=== PATIENT | female | born 1960 | race Caucasian/White ===

== ENCOUNTER 2025-01-05 16:18 | Inpatient (IN) | payer OTHER, SELFPAY ==
[2025-01-05 16:58] VITALS: BP 184/103; BP 184/118; PULSE 106; RESP 20; TEMP 37.2; O2SAT 90; BMI 32.3
[2025-01-05 17:00] VITALS: O2SAT 93
--- NOTE | 2025-01-05 17:02 | EKG_ITS ---
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: : 1960 Requested By: Khoi Boyd Order Number: [id number] Reading MD: Khoi Boyd Measurements Intervals [place] Rate: 107 P: 65 GA: 178 QRS: 59 QRSD: 99 T: 90 QT: 345 QTc: 461 Interpretive Statements SINUS TACHYCARDIA WITH OCCASIONAL SUPRAVENTRICULAR PREMATURE COMPLEXES VOLTAGE CRITERIA FOR LVH [MEETS CRITERIA IN ONE OF: R(aVL), S(V1), R(V5), R(V5/V6)+S(V1)] MODERATE ST DEPRESSION [0.05+ mV ST DEPRESSION] Compared to ECG 05/21/2024 10:09:51 Left ventricular hypertrophy now present ST (T wave) deviation now present Sinus rhythm no longer present Prolonged QT interval no longer present /store/S0/[id number].pdf
--- NOTE | 2025-01-05 17:02 | XR_ITS ---
Examination: PA lateral chest 2 views Technique: Upright PA lateral chest 2 views Exam date and time: January 05, 2025 1719 hrs. Comparison May 20, 2024 Indications: Shortness of breath fever today. Findings: Extensive diffuse right lung pneumonia Significant left base pneumonia Mild enlargement cardiac contour prominent vascular congestion Impression: Extensive diffuse right lung pneumonia Significant left base pneumonia Mild associated heart failure
--- NOTE | 2025-01-05 17:03 | EDRME_ITS ---
Rapid Medical Screening Exam [facility] Arrival date/time: 01/05/25 16:18 64-year-old female with a history of CHF, hypertension presents to the emergency room with a chief complaint of shortness of breath, fever x 1 day. Patient states she was having multiple episodes of vomiting yesterday and believes she aspirated. This morning she woke up with fevers and shortness of breath. I have greeted and performed a focused initial assessment of this patient. A comprehensive ED assessment and evaluation of the patient, analysis of all test results, and completion of the medical decision making process will be conducted by additional ED providers. Chief Complaint: Shortness of Breath/Dyspnea Vital signs: Vital Signs Temperature 99 F 01/05/25 16:58 Pulse Rate 106 H 01/05/25 16:58 Respiratory Rate 20 01/05/25 16:58 Blood Pressure 184/103 H 01/05/25 16:58 Pulse Oximetry (%) 90 L 01/05/25 16:58 Oxygen Delivery Method Room Air 01/05/25 16:58 Vital signs reviewed by provider: Yes
[2025-01-05 17:08] VITALS: BP 184/103; PULSE 106
[2025-01-05] MEDS: cloNIDine HCL 0.1 MG TABLET PO (17:08)
[2025-01-05 17:36] LABS: Basophils % (Auto) 0 % (0-2.5); Eosinophils % (Auto) 0 % (0-10); Hematocrit 45.5 % (36.0-46.0); Immature Granulocytes % (Auto) 0 % (0-0); Immature Granulocytes Auto 0.07 Thou/mm3 (0.00-0.00); Lymphocytes # (Auto) 0.9 Thou/mm3 (1.0-4.8); Lymphocytes % (Auto) 5 % (10-50); Mean Corpuscular Hemoglobin 29.5 pg (25.0-35.0); Mean Corpuscular Volume 89 fL (80-100); Monocytes # (Auto) 0.9 Thou/mm3 (0.0-0.8); Monocytes % (Auto) 5 % (0-12); Neutrophils # (Auto) 15.1 Thou/mm3 (1.8-7.7); Neutrophils % (Auto) 89 % (37-80); Nucleated Red Blood Cell % 0 /100 WBC (0); Platelet Count 295 Thou/mm3 (140-440); RDW Standard Deviation 44.5 fL (36.4-46.3); Red Blood Count 5.09 Miln/mm3 (4.00-5.20)
[2025-01-05] MEDS: METOCLOPRAMIDE 5 MG TABLET 10 MG PO (17:50)
[2025-01-05 18:08] LABS: Alanine Aminotransferase 14 U/L (10-49); Albumin, Serum 4.5 gm/dL (3.4-4.8); Albumin/Globulin Ratio 1.8 (1.2-2.2); Alkaline Phosphatase 107 U/L (46-116); Anion Gap 10 (7-16); Aspartate Amino Transferase 21 U/L (0-34); B-Type Natriuretic Peptide 696 pg/mL (0-100); BUN/Creatinine Ratio 22 Ratio (12-20); Bilirubin,Total 0.5 mg/dL (0.3-1.2); Blood Urea Nitrogen 26 mg/dL (9-23); Calcium 9.9 mg/dL (8.3-10.6); Calcium (Corrected) 9.9 mg/dL (8.5-10.1); Chloride 102 mMol/L (98-107); Creatinine (Component) 1.2 mg/dL (0.6-1.3); Estimated Creatinine Clearance 64.9 mL/min (>60); Globulin 2.5 gm/dL (2.3-3.5); Glucose 140 mg/dL (74-106); LDH (Lactate Dehydrogenase) 247 U/L (120-246); Magnesium 1.9 mg/dL (1.6-2.6); Osmolality,Calculated 274 (275-295); Potassium 4.6 mMol/L (3.4-5.1); Sodium 134 mMol/L (136-145); eGFR 51 See Note
[2025-01-05 18:16] LABS: Troponin I 0.913 ng/mL (0.0-0.045)
[2025-01-05 19:46] VITALS: BP 129/79; PULSE 93; RESP 16; O2SAT 97
[2025-01-05 21:00] VITALS: BP 125/69; PULSE 96; RESP 24; TEMP 36.8; O2SAT 96
[2025-01-05] MEDS: MORPHINE SULF INJ 10 MG/ML VIAL 5 MG IVP (21:22)
[2025-01-05] MEDS: ONDANSETRON INJ 2 MG/ML INJ 2 ML 4 MG IV (21:22)
--- NOTE | 2025-01-05 21:38 | PD.EDSOB ---
ED SOB =RME/HPI General Chief Complaint: Shortness of Breath/Dyspnea Stated Complaint: CAN'T BREATH W/ UPPER CHEST CONGESTION/PAIN Time Seen by Provider: 01/05/25 20:05 Source: patient Arrival date/time: 01/05/25 16:18 Mode of arrival: ambulatory Limitations: no limitations RME / HPI RME / HPI Narrative: 01/05/25 16:18 64-year-old female with a history of CHF, hypertension presents to the emergency room with a chief complaint of shortness of breath, fever x 1 day. Patient states she was having multiple episodes of vomiting yesterday and believes she aspirated. This morning she woke up with fevers and shortness of breath. I have greeted and performed a focused initial assessment of this patient. A comprehensive ED assessment and evaluation of the patient, analysis of all test results, and completion of the medical decision making process will be conducted by additional ED providers. DR RODRIGUEZ MAIN ED EVALUATION: 64-year-old female with a history of hypothyroidism, high blood pressure, and gastric bypass came to the ER because of shortness of breath and chest pain after vomiting. She is currently taking Wegovy for weight loss, which often causes vomiting after injections. She was in her usual state of health yesterday, but after several episodes of vomiting, she thinks she may have inhaled some of it (aspirated). Soon after, she developed a cough, shortness of breath, and a mild fever of 99?F, which led her to seek medical attention. Since then, she has been coughing but unable to bring anything up. She also feels wheezy and has chest pain on both sides, which was worse with deep breaths but has since improved. She denies having headaches, falls, injuries, loss of consciousness, chills, night sweats, heart palpitations, stomach pain, nausea, diarrhea, constipation, or urinary issues. Related Data Home Medications ?Medication ?Instructions ?Recorded ?Confirmed fluoxetine 40 mg capsule 40 mg PO QDAY 09/29/23 01/05/25 hydrocodone 10 mg-acetaminophen 1 tab PO Q8H PRN Pain 09/29/23 01/05/25 325 mg tablet levothyroxine 137 mcg tablet 137 mcg PO QDAY 11/17/23 02/23/25 ondansetron 8 mg disintegrating 8 mg PO Q8H PRN Nausea And Vomiting 09/29/23 01/05/25 tablet ropinirole 3 mg tablet 3 mg PO QDAY 09/29/23 01/05/25 semaglutide (weight loss) 2.4 2.4 mg subcut QWEEK 09/29/23 01/05/25 mg/0.75 mL subcutaneous pen injector lisinopril 5 mg tablet 5 mg PO QDAY 01/05/25 01/05/25 Previous Rx's ?Medication ?Instructions ?Recorded amlodipine 5 mg tablet 5 mg PO QDAY #30 tabs 05/22/24 aspirin 81 mg capsule 81 mg PO QDAY #30 caps 05/22/24 Allergies Allergy/AdvReac Type Severity Reaction Status Date / Time naproxen (From Naprosyn) Allergy Verified 09/29/23 13:31 Review of Systems Review of Systems Systems Reviewed: All systems reviewed, normal except as documented Past Medical History Past Medical History NEUROLOGIC: Negative Seizures CARDIAC: Positive Hypertension; Negative Congestive Heart Failure RESPIRATORY: Negative Chronic Obstructive Pulmonary Disease (COPD) GASTROINTESTINAL: Positive Obesity GENITOURINARY: Negative Renal Disease ENDOCRINE: Positive Hypothyroidism; Negative Diabetes Mellitus Type 1 or Diabetes Mellitus Type 2 PSYCHO/SOCIAL: Positive Depression OTHER HISTORY: Negative Blood Transfusions, Blood Transfusion Reaction or Anesthesia Reactions Family History FAMILY HISTORY: Positive Family Respiratory Disorders (Sangeetha had Asthma) Surgical History SURGICAL: Positive Knee Sx (Right knee replacement) Social History SMOKING STATUS: Never smoker SUBSTANCE USE: does not use ED Exam Narrative Physical exam: GENERAL APPEARANCE: alert and oriented x 4, well-developed, well-nourished, no acute distress VITALS: All vitals were reviewed and the pulse ox is 96% on 2 L/min via nasal cannula, which is normal according to my interpretation. HEENT: Normocephalic, atraumatic; pupils equal, round, reactive to light; EOMI; mucous membranes pink, moist; oropharynx clear NECK: Supple LUNGS: CTABL; no wheezes, no rales, no rhonchi HEART: Regular rate, regular rhythm; normal S1, S2; no murmurs ABDOMEN: non distended; normal BS; soft, no tenderness, no guarding, no rebound; no masses, no organomegaly, no hernia BACK: no CVA tenderness EXTREMITIES: atraumatic; no edema NEUROLOGIC: awake; alert and oriented x4; cranial nerves II-XII grossly intact; no focal sensory or motor deficits PSYCHIATRIC: appropriate mood and affect SKIN: warm, dry, normal color; no rashes General Limitations: Present no limitations Course Course Course Narrative: CXR is ordered for determining etiology of shortness of breath. Quality Measures none Orders Category Date Time Status EKG (ED ONLY) *Do not use* NOW Care 01/05/25 17:02 Completed EKG (ED Only) Stat Exams 01/05/25 17:02 Draft XR chest 2V Stat Exams 01/05/25 17:02 Completed B-Type Natriuretic Peptide Stat Lab 01/05/25 17:29 Completed Blood Culture (Lab) Stat Lab 01/05/25 23:02 Received CBC Stat Lab 01/05/25 17:29 Completed Comprehensive Metabolic Panel Stat Lab 01/05/25 17:29 Completed LDH (Lactate Dehydrogenase) Stat Lab 01/05/25 17:29 Completed Lactate (Lactic Acid) Stat Lab 01/05/25 22:57 Completed Magnesium Stat Lab 01/05/25 17:29 Completed Procalcitonin Stat Lab 01/05/25 22:57 Completed Troponin I Stat Lab 01/05/25 17:29 Completed Troponin I Stat Lab 01/05/25 22:57 Completed Urinalysis Stat Lab 01/06/25 01:11 Completed Urine Culture Stat Lab 01/06/25 01:11 Received Azithromycin Inj [Zithromax Inj] 500 mg Med 01/05/25 22:27 Discontinued Sodium Chloride 0.9% 250 ml [Ns] 250 ml IV X1 Metoclopramide [Reglan] Med 01/05/25 17:32 Discontinued 10 mg PO X1 ONE Morphine Inj Med 01/05/25 20:49 Discontinued 5 mg IVP X1 ONE Ondansetron Inj [Zofran Inj] Med 01/05/25 20:49 Discontinued 4 mg IV X1 ONE PROMETHAZINE w/COD SYRUP [Phenergan w/Cod Syrup ( Med 01/05/25 23:06 Discontinued Pediatric)] 10 ml PO X1 ONE cefTRIAXone [Rocephin] 1,000 mg Med 01/05/25 22:27 Discontinued SODIUM CHLORIDE 0.9% (Popper) [NS 0.9% (Popper)] 50 ml IV X1 cloNIDine HCL [Catapres] Med 01/05/25 17:04 Discontinued 0.1 mg PO X1 ONE Vital Signs Vital signs: Vital Signs Temperature 99 F 01/05/25 16:58 Pulse Rate 106 H 01/05/25 16:58 Respiratory Rate 20 01/05/25 16:58 Blood Pressure 184/103 H 01/05/25 16:58 Pulse Oximetry (%) 90 L 01/05/25 16:58 Oxygen Delivery Method Room Air 01/05/25 16:58 Shortness of Breath / Dyspnea MDM Narrative MDM Narrative:: Scribe Attestation: Vonda Hsieh am scribing for and in the presence of Dr. Rodriguez. Provider Notation: Although this document has been carefully reviewed, there may still be some phonetic and other typographical errors. These errors are purely grammatical due to imperfections in the software program and should not be construed in any way to compromise the substance of the patient's medical care during this visit. Patient data External records reviewed:: [facility] previous records Clinical information provided by:: patient Social determinants that could affect healthcare access:: none Patient has the following chronic illnesses:: see PMH How is presenting disease/condition affected by chronic disease/condition?: uneffected by Evaluation data The following diagnostics were reviewed and interpreted by me:: lab results, radiology exam(s) and EKG tracing(s) Lab and/or radiology exams considered but not ordered:: na Interpretation Summary: I personally reviewed the radiology data and agree with the radiologist's interpretation. Examination: PA lateral chest 2 views Technique: Upright PA lateral chest 2 views Exam date and time: January 05, 2025 1719 hrs. Comparison May 20, 2024 Indications: Shortness of breath fever today. Findings: Extensive diffuse right lung pneumonia Significant left base pneumonia Mild enlargement cardiac contour prominent vascular congestion Impression: Extensive diffuse right lung pneumonia Significant left base pneumonia Mild associated heart failure Dictated By: Morteza Marie MD Medications / Prescriptions Medications or Prescriptions considered but not ordered:: na Medication administrations:: Medication Administration History Acetaminophen (Acetaminophen 325 Mg Tablet) 650 mg PO Q6H PRN PRN Reason: PAIN SCALE 1-3 (mild Stop: 02/05/25 00:15 Acetaminophen (Acetaminophen 325 Mg Tablet) 650 mg PO Q6H PRN PRN Reason: Fever >100.4 Stop: 02/05/25 00:15 Hydrocodone Bitart/Acetaminophen (Hydrocodone/Apap 10/325 Tab) 1 tab PO Q8H PRN PRN Reason: PAIN SCALE 7-10 (Severe Stop: 01/11/25 00:15 Last Admin: 01/06/25 02:31 Dose: 1 tab Documented By: MARTINE Albuterol/Ipratropium (Albuterol/Ipratropium (Duoneb) Rt Kaye 3 Ml Nebu) 3 ml INH Q6HRRT JOYCELYN Stop: 02/05/25 00:59 Last Admin: 01/06/25 01:21 Dose: 3 ml Documented By: ANGELY Enoxaparin Sodium (Enoxaparin Sod Inj 40 Mg/0.4 Ml Syringe) 40 mg SC QDAY [facility] Stop: 01/20/25 08:59 Ceftriaxone Sodium 1,000 mg/ (Sodium Chloride) 50 mls @ 100 mls/hr IV [facility] Stop: 01/13/25 20:59 Azithromycin 250 mg/ Sodium (Chloride) 250 mls @ 250 mls/hr IV [facility] Stop: 01/13/25 20:59 Metronidazole (Flagyl 500 Mg Iv) 500 mg in 100 mls @ 200 mls/hr IV Q8HR JOYCELYN Stop: 01/13/25 00:16 Last Infusion: 01/06/25 01:42 Dose: Infused Documented By: Admin: 01/06/25 01:11 Dose: 200 mls/hr Documented By: BECKY Sodium Chloride (Ns) 1,000 mls @ 125 mls/hr IV .Q8H ONE Stop: 01/06/25 08:43 Last Admin: 01/06/25 02:31 Dose: 125 mls/hr Documented By: MARTINE Levothyroxine Sodium (Levothyroxine Sodium 112 Mcg Tablet) 112 mcg PO ACBR [facility] Stop: 02/05/25 05:59 Last Admin: 01/06/25 05:57 Dose: 112 mcg Documented By: MARTINE Levothyroxine Sodium (Levothyroxine Sodium 25 Mcg Tablet) 25 mcg PO ACBR [facility] Stop: 02/05/25 05:59 Last Admin: 01/06/25 05:58 Dose: 25 mcg Documented By: MARTINE Lisinopril (Lisinopril 2.5 Mg Tablet) 5 mg PO QDAY [facility] Stop: 02/05/25 08:59 Ondansetron HCl (Ondansetron Inj 2 Mg/Ml Inj 2 Ml) 4 mg IV Q6H PRN; Protocol PRN Reason: NAUSEA OR VOMITING Stop: 02/05/25 00:15 Pantoprazole Sodium (Pantoprazole Inj 40 Mg Vial) 40 mg IVP QDAY JOYCELYN Stop: 02/05/25 08:59 Discontinued Medications Hydrocodone Bitart/Acetaminophen (Hydrocodone/Apap 10/325 Tab) 1 tab PO Q4HR PRN PRN Reason: PAIN SCALE 7-10 (Severe Stop: 01/11/25 00:15 Clonidine (Clonidine Hcl 0.1 Mg Tablet) 0.1 mg PO X1 ONE Stop: 01/05/25 17:05 Last Admin: 01/05/25 17:08 Dose: 0.1 mg Documented By: IRVIN Azithromycin 500 mg/ Sodium (Chloride) 250 mls @ 250 mls/hr IV X1 ONE Stop: 01/05/25 23:26 Last Infusion: 01/06/25 00:21 Dose: Infused Documented By: Admin: 01/05/25 23:21 Dose: 250 mls/hr Documented By: BECKY Ceftriaxone Sodium 1,000 mg/ (Sodium Chloride) 50 mls @ 100 mls/hr IV X1 ONE Stop: 01/05/25 22:56 Last Infusion: 01/05/25 23:52 Dose: Infused Documented By: Admin: 01/05/25 23:22 Dose: 100 mls/hr Documented By: BECKY Sodium Chloride (Ns) 500 mls @ 999 mls/hr IV .Q31M ONE Stop: 01/06/25 01:13 Last Admin: 01/06/25 01:11 Dose: 999 mls/hr Documented By: BECKY Metoclopramide HCl (Metoclopramide 5 Mg Tablet) 10 mg PO X1 ONE Stop: 01/05/25 17:33 Last Admin: 01/05/25 17:50 Dose: 10 mg Documented By: IRVIN Morphine Sulfate (Morphine Sulf Inj 10 Mg/Ml Vial) 5 mg IVP X1 ONE Stop: 01/05/25 20:50 Last Admin: 01/05/25 21:22 Dose: 5 mg Documented By: BECKY Ondansetron HCl (Ondansetron Inj 2 Mg/Ml Inj 2 Ml) 4 mg IV X1 ONE Stop: 01/05/25 20:50 Last Admin: 01/05/25 21:22 Dose: 4 mg Documented By: BECKY Oxycodone/Acetaminophen (Oxycodone/Apap 5/325 Tablet) 1 tab PO Q6H PRN PRN Reason: PAIN SCALE 4-6 (Moderate Stop: 01/11/25 00:15 Promethazine HCl/Codeine (Promethazine W/Cod Syrup 1 Ml) 10 ml PO X1 ONE Stop: 01/05/25 23:07 Last Admin: 01/05/25 23:42 Dose: Not Given Documented By: BECKY Non-Admin Reason: Medication Not Available Promethazine HCl/Dextromethorphan (Promethazine/Dm Syrup 5 Ml Dose) 5 ml PO X1 ONE; Protocol Stop: 01/06/25 01:10 Last Admin: 01/06/25 01:24 Dose: 5 ml Documented By: BECKY Sodium Chloride (Sodium Chloride Rt 10% 15 Ml Nebu) 5 ml INH X1 ONE Stop: 01/06/25 00:17 Last Admin: 01/06/25 01:21 Dose: 5 ml Documented By: ANGELY as above Consultations Consultation(s) initiated? (list below): Yes Consultation #1 (Physician, Specialty, Details): Hospitalist made aware of the patient?s HPI, PMHx, lab and/or radiology results. Treatment plan was discussed. Accepts patient for admission. Diagnosis Shortness of Breath Differential Diagnosis: acute exacerbation of chronic obstructive airways disease, community acquired pneumonia and asthma with exacerbation Most likely diagnosis given after review of the tests above:: Pneumonis Admission Indicated Admission indicated?: indicated Admission Request Was there a request for admission?: Yes Admission Attestation Admission request attestation: Discussed case with [] from Hospitalist service regarding admission. Discussed patients ED course, exam findings, labs, and radiology results. The Hospitalist [agrees,declines] to accept the patient for admission. Disposition Plan Disposition Plan: Admit Discharge Plan Plan Patient Disposition: Admit Acute Care w/in Hospital Problem List Clinical Impression: Pneumonia
[2025-01-05 23:12] LABS: Lactate (Lactic Acid) 0.8 mMol/L (0.4-2.0)
[2025-01-05] MEDS: AZITHROMYCIN INJ 500 MG in SODIUM CHLORIDE 0.9% 250 ML 250 ML 250 MG IV (23:21)
[2025-01-05] MEDS: cefTRIAXone 1,000 MG in SODIUM CHLORIDE 0.9% (Popper) 50 ML 100 MG IV (23:22)
[2025-01-05 23:46] LABS: Procalcitonin 0.06 ng/ml (0.0-0.49)
[2025-01-05 23:49] LABS: Troponin I 1.354 ng/mL (0.0-0.045)
[2025-01-06] VITALS (10 sets, daily range): BP systolic 88–128; BP diastolic 47–73; PULSE 80–100; RESP 16–21; TEMP 36.3–36.7; O2SAT 91–99; BMI 32.1
--- NOTE | 2025-01-06 00:07 | PC.NURSE ---
Admitting provider at the bedside.
--- NOTE | 2025-01-06 00:21 | PD.RESHP ---
Documentation for date of: 01/06/25 [facility] History of Present Illness History of present illness: This is a 64-year-old female PMHx of hypothyroidism, HTN, and gastric bypass, presenting with shortness of breath and chest pain after vomiting. She is on WEGOVY for weight loss, and often has episodes of vomiting following the injection. She was at her normal state of health yesterday, however, she had several episode of vomiting and believe she had aspirated. This was followed by cough, shortness of breath, and a fever of 99 later that day, after which she decided to come to the ED. She has been coughing since, but unable to bring anything up. She states she feels wheezy and continued. Concurrently, she had chest pain bilaterally, worse with inspiration, nonradiating, which appears to have improved since the incident. Denies headaches, fall, trauma, LOC, chills or night sweats, palpitations, abdominal pain, nausea, diarrhea or constipation, dysuria, urinary frequency or urgency. ED COURSE: Tmax 99, HR 106, BP 184/103, RR 20, satting 7 on room air which improved with 2 L NC. WBC 17.0, remainder CBC WNL. Sodium 134, GLUCOSE 140. Normal Pro-Calc and lactic acid. BNP 696, troponin 0.913 > 1.354. EKG sinus tachycardia without acute ST changes. CXR showed extensive diffuse right lung pneumonia, significant left posterior medial, mild CHF. She was admitted for sepsis pneumonia and elevated troponins. PMHx: Hypothyroidism, HTN, obesity. PSHx: Tonsillectomy, gastric bypass, partial thyroidectomy, right knee replacement. MEDS: WEGOVY 2.4 mg weekly, LISINOPRIL 5 mg, NORCO q.8h., LEVOTHYROXINE 137 mcg. 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 Denies alcohol, tobacco, or drug use. Exam Vital Signs Temp Pulse Resp BP Pulse Ox O2 Del Method O2 Flow Rate 98.1 F 92 16 110/68 95 Nasal Cannula 3 01/06/25 00:00 01/06/25 00:00 01/06/25 00:00 01/06/25 00:00 01/06/25 00:00 01/06/25 00:00 01/06/25 00:00 Narrative Exam GENERAL Normal-appearing adult female, no apparent distress, on 3 L NC. HEENT NCAT.?[place]. Oral mucosa is moist. Patent Nares NECK Supple, nontender, no thyromegaly, no meningismus, no JVD, no step offs CHEST RRR, no m/g/r CTAB, no w/r/r. Symmetrical chest rise. No intercostal subcostal retraction Atraumatic, nontender, no crepitus, symmetrical expansion. ABDOMEN Soft, flat, nontender. No guarding/rebound tenderness/masses. Bowel sounds presents EXTREMITIES Nontender, no cyanosis, no edema No edema/cyanosis.? SKIN Warm and dry, no jaundice/rashes. NEUROMUSCULAR No lumbar or midline, no CVA, no paraspinal muscle spasm or tenderness. Moves all 4 extremities well, with full ROM and good CSM. WEBB x4, CN II-XII grossly intact. No focal neurologic deficits. PSYCHIATRY Normal mood and affect, cooperative, no SI or HI or hallucinations. Results: Labs 01/05/25 17:29 01/05/25 17:29 Labs: Short CBC 01/05/25 Range/Units 17:29 WBC 17.0 H (3.6-11.0) Thou/mm3 Hgb 15.0 (12.0-16.0) g/dL Hct 45.5 (36.0-46.0) % Plt Count 295 (140-440) Thou/mm3 BMP 01/05/25 17:29 Sodium 134 L Potassium 4.6 Chloride 102 Carbon Dioxide 22.0 BUN 26 H Creatinine 1.2 Glucose 140 H Calcium 9.9 Cardiac Enzymes 01/05/25 01/05/25 Range/Units 17:29 22:57 Troponin I 0.913 H* 1.354 H* D (0.0-0.045) ng/mL Liver Function 01/05/25 Range/Units 17:29 Total Bilirubin 0.5 (0.3-1.2) mg/dL AST 21 (0-34) U/L ALT 14 (10-49) U/L Alkaline Phosphatase 107 (46-116) U/L Albumin 4.5 (3.4-4.8) gm/dL Quality Measures Quality Measures none Medications Home Medications and Allergies Home Medications ?Medication ?Instructions ?Recorded ?Confirmed ?Type fluoxetine 40 mg capsule 40 mg PO QDAY 09/29/23 01/05/25 History hydrocodone 10 mg-acetaminophen 1 tab PO Q8H PRN Pain 09/29/23 01/05/25 History 325 mg tablet levothyroxine 137 mcg tablet 137 mcg PO QDAY 09/29/23 01/05/25 History ondansetron 8 mg disintegrating 8 mg PO Q8H PRN Nausea And Vomiting 09/29/23 01/05/25 History tablet ropinirole 3 mg tablet 3 mg PO QDAY 09/29/23 01/05/25 History semaglutide (weight loss) 2.4 2.4 mg subcut QWEEK 09/29/23 01/05/25 History mg/0.75 mL subcutaneous pen injector lisinopril 5 mg tablet 5 mg PO QDAY 01/05/25 01/05/25 History Allergies Allergy/AdvReac Type Severity Reaction Status Date / Time naproxen (From Naprosyn) Allergy Verified 09/29/23 13:31 Visit Medications Discontinued Medications Clonidine (Clonidine Hcl 0.1 Mg Tablet) 0.1 mg PO X1 ONE Stop: 01/05/25 17:05 Last Admin: 01/05/25 17:08 Dose: 0.1 mg Azithromycin 500 mg/ Sodium (Chloride) 250 mls @ 250 mls/hr IV X1 ONE Stop: 01/05/25 23:26 Last Admin: 01/05/25 23:21 Dose: 250 mls/hr Ceftriaxone Sodium 1,000 mg/ (Sodium Chloride) 50 mls @ 100 mls/hr IV X1 ONE Stop: 01/05/25 22:56 Last Infusion: 01/05/25 23:52 Dose: Infused Metoclopramide HCl (Metoclopramide 5 Mg Tablet) 10 mg PO X1 ONE Stop: 01/05/25 17:33 Last Admin: 01/05/25 17:50 Dose: 10 mg Morphine Sulfate (Morphine Sulf Inj 10 Mg/Ml Vial) 5 mg IVP X1 ONE Stop: 01/05/25 20:50 Last Admin: 01/05/25 21:22 Dose: 5 mg Ondansetron HCl (Ondansetron Inj 2 Mg/Ml Inj 2 Ml) 4 mg IV X1 ONE Stop: 01/05/25 20:50 Last Admin: 01/05/25 21:22 Dose: 4 mg Promethazine HCl/Codeine (Promethazine W/Cod Syrup 1 Ml) 10 ml PO X1 ONE Stop: 01/05/25 23:07 Last Admin: 01/05/25 23:42 Dose: Not Given Assessment & Plan Plan In summary: 64-year-old female PMHx of hypothyroidism, HTN, and gastric bypass, presenting with shortness of breath and chest pain after vomiting. Admitted for sepsis pneumonia and elevated troponin. Concern for sepsis Aspiration pneumonia Presenting with SOB, fever, and pleuritic chest pain after severe vomiting 2/2 WEGOVY. Believes she had aspirated during vomiting. Desatted to 87% on admission, improved to mid 90s on 3 L NC. Met 4/4 SIRS with T99, HR 106, RR 20, WBC 17.0, with pneumonia source and EOD i.e. troponinemia. CXR showed extensive diffuse right lung pneumonia, significant left posterior medial, mild CHF. Does not appear volume depleted, has elevated BNP, will give 2 L fluids in total only. Will treat for CAP, aspiration and HCAP. Low concerns for Pseudomonas. ? Admit to telemetry ? Started 500 mL NS bolus. ? Started 1 L NS maintenance at 125 cc/H ? Continue AZITHROMYCIN, CEFTRIAXONE, FLAGYL ? Continue DuoNebs ? Pending blood/sputum/urine cultures NSTEMI, likely type II Elevated BNP Had pleuritic chest pain bilaterally, nonradiating, nonexertional. Admission BNP 696, troponin 0.913 > 1.354. EKG sinus tachycardia without acute ST changes. Last echo 05/2024 showed EF 60?65, normal LV/RV size and function. Most likely NSTEMI or demand ischemia. No signs of volume overload, clear lung sounds, no lower extremity edema. Denies active chest pain currently. ? Trending troponin ? Pending repeat EKG ? Consider repeat echo Hypothyroidism Partial thyroidectomy Follows up regularly with PCP regarding thyroid function. ? Continue home LEVOTHYROXINE 137 mcg Chronic right knee pain S/p right knee replacement with chronic knee pain for which she is on NORCO. ? Continue home NORCO 10?325 q.8h. Elevated GLUCOSE GLUCOSE 140 on admission, likely reactive. A1c 5.1 from 05/2024. She is on WEGOVY for weight loss, denies history of diabetes. ? Daily GLUCOSE Asymptomatic pyuria UA showed WBC 12, positive leukocyte esterase. Denies urinary symptoms. ? Pending urine culture Health maintenance Diet: Cardiac GI prophylaxis: PROTONIX DVT prophylaxis: LOVENOX Antibiotics: CEFTRIAXONE, AZITHROMYCIN, FLAGYL CODE STATUS: Full code Disposition: Treating pneumonia, trending troponin. Patient case was discussed with attending, Carol Brush MD. Loree Richard DO PGYI Attending Provider Attestation/Addendum I attest that I was physically present for the evaluation, physical examination, lab and imaging review of the patient with the residents. I discussed the case with the residents and agree with the findings and plans of care as documented above. Patient is a 64 years old female with past medical history of hypothyroidism, hypertension, status post gastric bypass surgery who presented to the ED with complaint of shortness of breath and chest pain. Patient has been on Wegovy for weight loss, with which she has had multiple episodes of vomiting. Yesterday, patient had episodes of vomiting following which she had episode of aspiration. Later on she started having cough, shortness of breath and mild fever with temperature up to 99 ?F following which she decided to visit the ED. Patient did endorse chest pain but states that her pain is bilateral and only worsens with deep inspiration, denies any radiation or relation with exertion. In the ED, she was found to be mildly tachycardic at 106, she had oxygen saturation of 87 initially which was improved with 2 L nasal cannula. Also had WBC of 17, troponin of 0.913 which up trended to 1.354, she also had BNP of 696. EKG shows sinus tachycardia without ST elevation. Chest x-ray shows bilateral pneumonia. We will admit patient for management of aspiration pneumonia, NSTEMI to rule out ACS. We will start patient on IV Rocephin, azithromycin and Flagyl. We will obtain blood/sputum and urine cultures. We will trend troponin and EKG. If follow-up troponin continues to uptrend and EKG shows ST changes, we will obtain cardiology consult. Kellie Brush MD
[2025-01-06] MEDS: metroNIDAZOLE/NS 500 MG IVPB 500 MG/100 ML BAG 200 MG IV ×2 (01:11→06:00)
[2025-01-06] MEDS: SODIUM CHLORIDE 0.9% 500 ML 500 ML 999 ML IV (01:11)
[2025-01-06 01:17] LABS: Collection Type, Urine Clean Catch
[2025-01-06] MEDS: SODIUM CHLORIDE RT 10% 15 ML NEBU 5 ML INH (01:21)
[2025-01-06] MEDS: ALBUTEROL/IPRATROPIUM (Duoneb) RT SOL 3 ML NEBU INH ×3 (01:21→13:10)
[2025-01-06] MEDS: PROMETHAZINE/DM SYRUP 5 ML DOSE PO (01:24)
[2025-01-06 01:38] LABS: Bacteria,Urine Rare; Bilirubin,Urine Negative (Negative); Blood,Urine Negative (Negative); Clarity,Urine Clear (Clear/Hazy); Color,Urine Colorless (Lt Yel-Yel); Glucose, Urine Negative (Negative); Ketones,Urine Negative (Negative); Leukocyte Esterase,Urine Negative (Negative); Nitrite,Urine Negative (Negative); Protein,Urine Negative (Neg - Trace); RBC,Urine < 1 /hpf (0-3); Specific Gravity,Urine 1.009 (1.001-1.035); Squamous Epithelial Cell,Urine < 1 /hpf (0-5); Urobilinogen,Urine Negative mg/dL (0.0-1.0); WBC,Urine 1 /hpf (0-5)
--- NOTE | 2025-01-06 01:52 | PC.RT ---
Sputum induction sodium chloride given. Pt was unable to produce any sputum. Left specimen cup with pt.
[2025-01-06] MEDS: HYDROcodone/APAP 10/325 TAB PO ×2 (02:31→09:36)
[2025-01-06] MEDS: SODIUM CHLORIDE 0.9% 1000 ML 1,000 ML 125 ML IV (02:31)
[2025-01-06 05:47] LABS: Basophils % (Auto) 0 % (0-2.5); Eosinophils % (Auto) 0 % (0-10); Hemoglobin 11.2 g/dL (12.0-16.0); Immature Granulocytes % (Auto) 0 % (0-0); Immature Granulocytes Auto 0.03 Thou/mm3 (0.00-0.00); Lymphocytes # (Auto) 1.4 Thou/mm3 (1.0-4.8); Lymphocytes % (Auto) 16 % (10-50); Mean Corpuscular HGB Conc 32.9 g/dl (31.0-37.0); Mean Corpuscular Hemoglobin 29.9 pg (25.0-35.0); Mean Corpuscular Volume 91 fL (80-100); Monocytes # (Auto) 0.9 Thou/mm3 (0.0-0.8); Monocytes % (Auto) 11 % (0-12); Neutrophils # (Auto) 6.1 Thou/mm3 (1.8-7.7); Neutrophils % (Auto) 72 % (37-80); Nucleated Red Blood Cell % 0 /100 WBC (0); Platelet Count 144 Thou/mm3 (140-440); RDW Standard Deviation 45.4 fL (36.4-46.3); Red Blood Count 3.74 Miln/mm3 (4.00-5.20); White Blood Count 8.4 Thou/mm3 (3.6-11.0)
[2025-01-06] MEDS: LEVOTHYROXINE SODIUM 112 MCG TABLET PO (05:57)
[2025-01-06] MEDS: LEVOTHYROXINE SODIUM 25 MCG TABLET PO (05:58)
[2025-01-06 06:15] LABS: Alanine Aminotransferase 10 U/L (10-49); Albumin, Serum 3.4 gm/dL (3.4-4.8); Albumin/Globulin Ratio 1.9 (1.2-2.2); Alkaline Phosphatase 72 U/L (46-116); Anion Gap 7 (7-16); Aspartate Amino Transferase 14 U/L (0-34); BUN/Creatinine Ratio 22 Ratio (12-20); Bilirubin,Total 0.4 mg/dL (0.3-1.2); Blood Urea Nitrogen 24 mg/dL (9-23); Calcium 8.7 mg/dL (8.3-10.6); Calcium (Corrected) 9.2 mg/dL (8.5-10.1); Carbon Dioxide 25.6 mMol/L (20.0-31.0); Chloride 106 mMol/L (98-107); Creatinine (Component) 1.1 mg/dL (0.6-1.3); Estimated Creatinine Clearance 70.5 mL/min (>60); Globulin 1.8 gm/dL (2.3-3.5); Glucose 95 mg/dL (74-106); Magnesium 1.9 mg/dL (1.6-2.6); Osmolality,Calculated 281 (275-295); Phosphorous 3.7 mg/dL (2.4-5.1); Potassium 4.4 mMol/L (3.4-5.1); Sodium 139 mMol/L (136-145); Total Protein 5.2 gm/dL (5.7-8.2); eGFR 57 See Note
[2025-01-06 06:22] LABS: Troponin I 0.948 ng/mL (0.0-0.045)
[2025-01-06] MEDS: Magnesium Sulfate 2 GM Ivpb 2 GM/50 ML BAG IV (08:53)
[2025-01-06] MEDS: PANTOPRAZOLE INJ 40 MG VIAL IVP (08:53)
[2025-01-06] MEDS: Lisinopril 2.5 MG TABLET 5 MG PO (08:53)
[2025-01-06] MEDS: ENOXAPARIN SOD INJ 40 MG/0.4 ML SYRINGE SC (08:55)
--- NOTE | 2025-01-06 09:33 | PD.RESCONSUL ---
HPI Data of Consult Requesting Physician: Kellie Brush MD Admitting Provider: Kellie Brush MD Attending Provider: Kellie Brush MD Primary Care Provider: Eddie Muhammad MD Consult Narrative History of present illness: Ms. Finch is a 64 year old female with past medical history significant for hypertension, hypothyroidism s/p partial thyroidectomy and gastric bypass surgery in 1999 presented to the ED complaining of shortness of breath and discomfort. Pt stated she started having intractable nausea and vomiting since Monday and had more than 50 episodes of vomiting during which she felt like she aspirated causing her chest discomfort and SOB. Pt states she has had similar episodes previously, usually happens 2-3 times a year for the last 2 years. Pt underwent gastric bypass surgery in 1999 and did not have any complications related to the surgery. Pt started taking wegovy a year ago and have lost 120 pounds in the last one year. Pt states previously zofran doesn't work for the vomiting and reglan is the only medication that helps. Pt denies previous cardiac history. Pt denies chest pain, pressure and palpitations. Although during vomiting patient has SOB, she states that has completely resolved. Pt denies dizziness and syncopal episodes. Pt underwent cardiac catherization with Dr. Justyna Zavala on 09/29/2023 1. Nonobstructive normal epicardial coronary arteries. 2. Normal left ventricular systolic function, ejection fraction of 65%. Echo done 05/20/2024 Normal LV size and function. Estimated EF 60-65% Normal RV size and function. No wall motion abnormalities noted. Trace mitral and trace tricuspid regurgitation Vitals : BP 104/64, labs are stable, Labs: CMP stable with the exception of BUN 24 likely secondary to dehydration, Troponin 1.354 -> 0.948 -> 0.700, BNP 696 urine analysis negative Images: EKG sinus tachycardia without acute ST changes. CXR showed extensive diffuse right lung pneumonia, significant left posterior medial, mild CHF. PMH: Hypothyroidism, HTN, obesity. PSH: Tonsillectomy, gastric bypass, partial thyroidectomy, right knee replacement. 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 cc:: cc: Kellie Brush MD Review of Systems Review of Systems Systems Reviewed: All systems reviewed, normal except as documented Exam Vital Signs Temp Pulse Resp BP Pulse Ox O2 Del Method O2 Flow Rate 97.9 F 80 18 104/63 96 Nasal Cannula 3 01/06/25 08:00 01/06/25 08:53 01/06/25 08:00 01/06/25 08:53 01/06/25 08:00 01/06/25 08:00 01/06/25 08:00 Narrative Exam GENERAL: A&Ox3 . Awake, Not in acute distress, saturating on room air NEURO: no focal neurological deficits HEENT: Atraumatic, Normocephalic. mucous membranes moist. Eyes open, symmetrical, & clear HEART: Normal Heart Sounds LUNGS: Clear to auscultation with no wheezing or crackles. ABDOMEN: soft, non-distended, non-tender, bowel sounds heard, no guarding or rebound tenderness SKIN: No Rash or ecchymoses EXTREMITIES: No edema, tenderness, able to move all 4 extremities, pedal pulses palpated Results Labs 01/06/25 05:17 01/06/25 05:17 Labs: Short CBC 01/05/25 01/06/25 Range/Units 17:29 05:17 WBC 17.0 H 8.4 D (3.6-11.0) Thou/mm3 Hgb 15.0 11.2 L D (12.0-16.0) g/dL Hct 45.5 34.0 L D (36.0-46.0) % Plt Count 295 144 D (140-440) Thou/mm3 BMP 01/05/25 01/06/25 17:29 05:17 Sodium 134 L 139 Potassium 4.6 4.4 Chloride 102 106 Carbon Dioxide 22.0 25.6 BUN 26 H 24 H Creatinine 1.2 1.1 Glucose 140 H 95 Calcium 9.9 8.7 Cardiac Enzymes 01/05/25 01/05/25 01/06/25 Range/Units 17:29 22:57 05:17 Troponin I 0.913 H* 1.354 H* D 0.948 H* D (0.0-0.045) ng/mL Liver Function 01/05/25 01/06/25 Range/Units 17:29 05:17 Total Bilirubin 0.5 0.4 (0.3-1.2) mg/dL AST 21 14 (0-34) U/L ALT 14 10 (10-49) U/L Alkaline Phosphatase 107 72 D (46-116) U/L Albumin 4.5 3.4 D (3.4-4.8) gm/dL Urine 01/06/25 Range/Units 01:11 Urine Color Colorless A (Lt Yel-Yel) Urine Clarity Clear (Clear/Hazy) Urine pH 6.0 (5.0-7.0) Ur Specific [place] 1.009 (1.001-1.035) Urine Protein Negative (Neg - Trace) Urine Glucose (UA) Negative (Negative) Quality Measures Quality Measures none Medications Home Medications and Allergies Home Medications ?Medication ?Instructions ?Recorded ?Confirmed ?Type fluoxetine 40 mg capsule 40 mg PO QDAY 09/29/23 01/05/25 History hydrocodone 10 mg-acetaminophen 1 tab PO Q8H PRN Pain 09/29/23 01/05/25 History 325 mg tablet levothyroxine 137 mcg tablet 137 mcg PO QDAY 09/29/23 01/05/25 History ondansetron 8 mg disintegrating 8 mg PO Q8H PRN Nausea And Vomiting 09/29/23 01/05/25 History tablet ropinirole 3 mg tablet 3 mg PO QDAY 09/29/23 01/05/25 History lisinopril 5 mg tablet 5 mg PO QDAY 01/05/25 01/05/25 History Allergies Allergy/AdvReac Type Severity Reaction Status Date / Time naproxen (From Naprosyn) Allergy Verified 09/29/23 13:31 Visit Medications Acetaminophen (Acetaminophen 325 Mg Tablet) 650 mg PO Q6H PRN PRN Reason: PAIN SCALE 1-3 (mild Stop: 02/05/25 00:15 Acetaminophen (Acetaminophen 325 Mg Tablet) 650 mg PO Q6H PRN PRN Reason: Fever >100.4 Stop: 02/05/25 00:15 Hydrocodone Bitart/Acetaminophen (Hydrocodone/Apap 10/325 Tab) 1 tab PO Q6HR PRN PRN Reason: PAIN SCALE 7-10 (Severe Stop: 01/11/25 00:55 Albuterol/Ipratropium (Albuterol/Ipratropium (Duoneb) Rt Kaye 3 Ml Nebu) 3 ml INH Q6HRRT [facility] Stop: 02/05/25 00:59 Last Admin: 01/06/25 07:48 Dose: 3 ml Enoxaparin Sodium (Enoxaparin Sod Inj 40 Mg/0.4 Ml Syringe) 40 mg SC QDAY [facility] Stop: 01/20/25 08:59 Last Admin: 01/06/25 08:55 Dose: 40 mg Ceftriaxone Sodium 1,000 mg/ (Sodium Chloride) 50 mls @ 100 mls/hr IV HS JOYCELYN Stop: 01/13/25 20:59 Azithromycin 250 mg/ Sodium (Chloride) 250 mls @ 250 mls/hr IV HS [facility] Stop: 01/13/25 20:59 Metronidazole (Flagyl 500 Mg Iv) 500 mg in 100 mls @ 200 mls/hr IV Q8HR JOYCELYN Stop: 01/13/25 00:16 Last Infusion: 01/06/25 06:45 Dose: Infused Magnesium Sulfate (Magnesium Sulfate Ivpb) 2 gm in 50 mls @ 25 mls/hr IV X1 ONE Stop: 01/06/25 10:14 Last Admin: 01/06/25 08:53 Dose: 25 mls/hr Levothyroxine Sodium (Levothyroxine Sodium 112 Mcg Tablet) 112 mcg PO ACBR [facility] Stop: 02/05/25 05:59 Last Admin: 01/06/25 05:57 Dose: 112 mcg Levothyroxine Sodium (Levothyroxine Sodium 25 Mcg Tablet) 25 mcg PO ACBR [facility] Stop: 02/05/25 05:59 Last Admin: 01/06/25 05:58 Dose: 25 mcg Lisinopril (Lisinopril 2.5 Mg Tablet) 5 mg PO QDAY [facility] Stop: 02/05/25 08:59 Last Admin: 01/06/25 08:53 Dose: 5 mg Ondansetron HCl (Ondansetron Inj 2 Mg/Ml Inj 2 Ml) 4 mg IV Q6H PRN; Protocol PRN Reason: NAUSEA OR VOMITING Stop: 02/05/25 00:15 Pantoprazole Sodium (Pantoprazole Inj 40 Mg Vial) 40 mg IVP QDAY [facility] Stop: 02/05/25 08:59 Last Admin: 01/06/25 08:53 Dose: 40 mg Discontinued Medications Hydrocodone Bitart/Acetaminophen (Hydrocodone/Apap 10/325 Tab) 1 tab PO Q4HR PRN PRN Reason: PAIN SCALE 7-10 (Severe Stop: 01/11/25 00:15 Hydrocodone Bitart/Acetaminophen (Hydrocodone/Apap 10/325 Tab) 1 tab PO Q8H PRN PRN Reason: PAIN SCALE 7-10 (Severe Stop: 01/11/25 00:15 Last Admin: 01/06/25 02:31 Dose: 1 tab Clonidine (Clonidine Hcl 0.1 Mg Tablet) 0.1 mg PO X1 ONE Stop: 01/05/25 17:05 Last Admin: 01/05/25 17:08 Dose: 0.1 mg Azithromycin 500 mg/ Sodium (Chloride) 250 mls @ 250 mls/hr IV X1 ONE Stop: 01/05/25 23:26 Last Infusion: 01/06/25 00:21 Dose: Infused Ceftriaxone Sodium 1,000 mg/ (Sodium Chloride) 50 mls @ 100 mls/hr IV X1 ONE Stop: 01/05/25 22:56 Last Infusion: 01/05/25 23:52 Dose: Infused Sodium Chloride (Ns) 500 mls @ 999 mls/hr IV .Q31M ONE Stop: 01/06/25 01:13 Last Admin: 01/06/25 01:11 Dose: 999 mls/hr Sodium Chloride (Ns) 1,000 mls @ 125 mls/hr IV .Q8H ONE Stop: 01/06/25 08:43 Last Admin: 01/06/25 02:31 Dose: 125 mls/hr Metoclopramide HCl (Metoclopramide 5 Mg Tablet) 10 mg PO X1 ONE Stop: 01/05/25 17:33 Last Admin: 01/05/25 17:50 Dose: 10 mg Morphine Sulfate (Morphine Sulf Inj 10 Mg/Ml Vial) 5 mg IVP X1 ONE Stop: 01/05/25 20:50 Last Admin: 01/05/25 21:22 Dose: 5 mg Ondansetron HCl (Ondansetron Inj 2 Mg/Ml Inj 2 Ml) 4 mg IV X1 ONE Stop: 01/05/25 20:50 Last Admin: 01/05/25 21:22 Dose: 4 mg Oxycodone/Acetaminophen (Oxycodone/Apap 5/325 Tablet) 1 tab PO Q6H PRN PRN Reason: PAIN SCALE 4-6 (Moderate Stop: 01/11/25 00:15 Promethazine HCl/Codeine (Promethazine W/Cod Syrup 1 Ml) 10 ml PO X1 ONE Stop: 01/05/25 23:07 Last Admin: 01/05/25 23:42 Dose: Not Given Promethazine HCl/Dextromethorphan (Promethazine/Dm Syrup 5 Ml Dose) 5 ml PO X1 ONE; Protocol Stop: 01/06/25 01:10 Last Admin: 01/06/25 01:24 Dose: 5 ml Sodium Chloride (Sodium Chloride Rt 10% 15 Ml Nebu) 5 ml INH X1 ONE Stop: 01/06/25 00:17 Last Admin: 01/06/25 01:21 Dose: 5 ml Assessment & Plan Plan Ms. Finch is a 64 year old female with past medical history significant for hypertension, hypothyroidism s/p partial thyroidectomy and gastric bypass surgery in 1999 presented to the ED complaining of shortness of breath and discomfort. Cardiology is consulted for elevated troponins #NSTEMI type ll #elevated BNP -Pt complained of brief chest discomfort following vomiting episodes. but denies chest pain, pressure or palpitations -Troponin 1.354 -> 0.948 -> 0.700, BNP 696 -EKG show sinus tachycardia with occasional PVCs -CXR show Mild enlargement cardiac contour prominent vascular congestion -likely secondary to demand ischemia in the setting of intractable vomiting Pt underwent cardiac catherization with Dr. Justyna Zavala on 09/29/2023 1. Nonobstructive normal epicardial coronary arteries. 2. Normal left ventricular systolic function, ejection fraction of 65%. Echo done 05/20/2024 Normal LV size and function. Estimated EF 60-65% Normal RV size and function. No wall motion abnormalities noted. Trace mitral and trace tricuspid regurgitation -Repeat echo done, pending read #Aspiration pneumonia in the setting of #Intractable vomiting -Pt has intractable nausea and vomiting with more than 50 episodes causing her to aspirate. Pt had chest discomfort following vomiting episode. CXR- Extensive diffuse right lung pneumonia, Significant left base pneumonia, Mild associated heart failure -Pt is started on antibiotics, fluids and DuoNebs #Primary Hypertension -Pt is on lisinopril #Hypothyroidism s/p partial thyroidectomy -Pt underwent partial thyroidectomy for hashimotos in 1987 and underwent multiple biospsy which were normal - pt is on levothyroxine Assessment and plan discussed with my attending physician Dr. Kenisha Tracy (PGY-1)- Internal medicine resident Attending Provider Attestation/Addendum I reviewed the resident Dr. Calixto Tracy consultation progress note and agree with the resident findings and plan in the note above and have also edited the documentation to reflect my findings and plan. 62-year-old female patient with a past medical history of essential hypertension, hypothyroidism, obesity, history of gastric bypass surgery in 1999, hypothyroidism from partial thyroidectomy, history of NSTEMI and type II previously but normal cardiac catheterization in 2022, depression presented to the emergency department for further evaluation of shortness of breath as well as intractable nausea and vomiting. Unclear etiology with working up the same. Patient apparently had more than 50 episodes of nausea and vomiting and now has some chest discomfort along with some shortness of breath after that and troponins were elevated at 1.35 and then down trended. Cardiology now consulted for the elevated troponins. EKG showed sinus tachycardia with occasional PVCs. Chest x-ray with cardiomegaly and mild vascular congestion. BNP was elevated. Unlikely acute coronary events given the severe nausea and vomiting. As noted above EKG without any acute findings. Previous echocardiogram as well as a cardiac cath showed normal ejection fraction. Will check an echocardiogram to rule out any kind of regional wall motion abnormalities. No further troponins needed heparin needed at the present point of time. Patient already had a cardiac attrition 20,000 T3 which showed nonobstructive coronaries will not need any cardiac catheterization unless the echocardiogram shows any kind of new regional wall motion abnormalities. Patient unfortunately did not want to stay in the hospital and wanted to go home as she was feeling better and was recommended outpatient follow-up to further evaluation. Patient provided with office phone number for appointment. Management of rest of the medical conditions as per primary team and other consultants. Thank you for the consult and allowing me to participate in the care of the patient. Cardiology will continue to follow. Rogers De M.D. Interventional Cardiology
--- NOTE | 2025-01-06 14:03 | ESDS_ITS ---
<Statement entered by Quincy Armas MD - 01/06/25 14:32> Patient was examined with the team including attending physician. Note reviewed, I agree with the discharge plan as documented. - Quincy Armas M.D. PGY2 Disclaimer: The document below may not be free of grammatical/phonetic/typographic errors due to use of voice recognition software. This does not dissuade from the commitment to providing health care with the patient's best interest in mind. Planned Discharge Date 01/06/25 DS: Providers Provider Date of admission: 01/06/25 00:16 Primary care physician: Eddie Muhammad MD Admitting Provider: Kellie Brush MD Attending Provider on Admission: Arsh Pompa MD Consults: 01/06/25 08:15 Consult to Cardiology Routine Comment: Troponinemia Consulting Provider: Rogers De Attending Provider on DC: Arsh Pompa MD Discharging Provider: Dianna Sepulveda MD DS: Diagnosis Problem List Completed Was Problem List Reviewed/Reconciled?: Yes Hospital Course Hospital Course Hospital course: The patient is a 64-year-old female with a past medical history of hypothyroidism hypertension gastric bypass currently on Wegovy who presented to the ED on 01/05/2025 with complaints of cough, shortness of breath and chest pain shortly after the episode of vomiting. Per the patient, the vomiting symptoms are not new and she typically vomits after her injection. In the ED, she was tachycardic and had leukocytosis but normal Pro-Madhu and lactic acid. Troponins were elevated and EKG showed sinus tachycardia without acute changes. Chest x-ray showed extensive diffuse right lung pneumonia and she was admitted for sepsis secondary to pneumonia and elevated troponins. She was started on IV ceftriaxone, azithromycin and metronidazole. Today, the patient is clinically and hemodynamically stable, saturating 96% on room air, no longer has cough or chest pain. Troponins are now downtrending. She has been medically cleared for discharge to continue on levofloxacin 750 mg daily for another 4 days. She is also recommended to stop taking Wegovy until she follows up with her PCP and discuss other options. #Sepsis ruled out #Aspiration pneumonia versus pneumonitis #NSTEMI, likely type II #History of hypothyroidism #Asymptomatic pyuria Discharge instructions: Follow up with your PCP within 1 week of discharge Stop taking Wegovy until follow up with PCP Take Scopolamine patches every 3 days for intractable nausea and vomiting You may take Benzocaine lozenges for your dry cough Take levofloxacin for 4 more days Case was discussed with Dr Armas PGY-2 and attending physician, Dr Peña Sepulveda MD PGY-1 Disclaimer: This note was dictated by speech recognition. Minor errors in dairy feed mixing operator may be present due to voice recognition software. Status at Discharge Cognitive/behavioral status at discharge: stable and returned to baseline Overall status at discharge: patient is back to baseline Time Spent with Patient Time attestation: Total time spent providing and/or coordinating discharge services: more than 50% Time spent: Greater than 30 minutes Exam Vital Signs Temp Pulse Resp BP Pulse Ox O2 Del Method O2 Flow Rate 97.9 F 83 18 88/47 L 99 Room Air 3 01/06/25 12:00 01/06/25 13:12 01/06/25 13:12 01/06/25 12:00 01/06/25 13:12 01/06/25 12:00 01/06/25 08:00 Narrative Exam GENERAL: AAOX3 NEURO: HOOKER UP grossly intact, moves extremities x4 HEENT: Moist mucosa. Eyes open, symmetrical, & clear CARDIO: No chest pain on palpation. Heart RRR, no obvious murmurs PULM: No noted coughing/dyspnea. Lungs CTA B/L GI: Abdomen soft, nondistended, no pain on palpation. BSx4 URO/BRICK STACKER:: No further abnormalities noted. SKIN/MSK/EXT: No wounds/rashes/edema/amputations, no pain on palpation. Pedal p ulses present B/L Discharge Plan Plan Patient Disposition: HOME (Self Care) Patient condition on transfer: Stable Care Plan Goals: Follow up with your PCP within 1 week of discharge Stop taking Wegovy until follow up with PCP Take Scopolamine patches every 3 days for intractable nausea and vomiting You may take Benzocaine lozenges for your dry cough Take levofloxacin for 4 more days Prescriptions/Referrals Prescriptions/Med Rec: New scopolamine base 1 mg over 3 days patch 3 day 1 mg topical Q72H 30 Days Qty: 10 0RF benzocaine 15 mg lozenge 1 mg PO Q12H PRN (Reason: cough) 10 Days Qty: 18 0RF levofloxacin 750 mg tablet 750 mg PO QDAY 4 Days Qty: 4 0RF Continued levothyroxine 137 mcg Tablet 137 mcg PO QDAY ondansetron 8 mg Tablet,Disintegrating 8 mg PO Q8H PRN (Reason: Nausea And Vomiting) fluoxetine 40 mg Capsule 40 mg PO QDAY ropinirole 3 mg Tablet 3 mg PO QDAY hydrocodone-acetaminophen 10-325 mg Tablet 1 tab PO Q8H PRN (Reason: Pain) aspirin 81 mg capsule 81 mg PO QDAY Qty: 30 0RF amlodipine 5 mg tablet 5 mg PO QDAY Qty: 30 0RF lisinopril 5 mg tablet 5 mg PO QDAY Discontinued semaglutide (weight loss) 2.4 mg/0.75 mL Pen Injector 2.4 mg SUBCUT QWEEK Referrals: Eddie Muhammad MD [Primary Care Provider] - Patient/Caregiver Discharge Instructions Other Discharge Activity Instructions:: Follow up with your PCP within 1 week of discharge Stop taking Wegovy until follow up with PCP Take Scopolamine patches every 3 days for intractable nausea and vomiting You may take Benzocaine lozenges for your dry cough Take levofloxacin for 4 more days Education Materials: When You Have Pneumonia Print Language: Tamazight Stand Alone Forms: Danielle Award Info., Patient Portal Info Letter Discharge Order Discharge Orders: Discharge (Routine); Ordered 01/06/25 Ordered By: Dianna Sepulveda Quality Discharge Quality Measures VTE prophylaxis Attestestation MD Attestation I have examined the patient, reviewed labs and imaging findings, discussed the case with the resident(s), and reviewed entered orders. I agree with the plan of care as outlined in this note. Dr. Peña MD
== END 2025-01-06 14:10 | disposition home or self-care (01) | DRG 177 ==
LOC: SERX 21:15 → SERHOLD 01-06 01:03 → S2NX 01-06 02:10
PROVIDERS: Nurse Practitioner Family; Admitting Provider Student in an Organized Health Care Education/Training Program; Emergency Provider Emergency Medicine; PCP Family Medicine; Visit Provider Student in an Organized Health Care Education/Training Program
DX: J69.0 Pneumonitis due to inhalation of food and vomit (principal); I21.A1 Myocardial infarction type 2; Z98.84 Bariatric surgery status; E66.9 Obesity, unspecified; Z68.32 Body mass index [BMI] 32.0-32.9, adult; I11.0 Hypertensive heart disease with heart failure; I50.9 Heart failure, unspecified; J98.4 Other disorders of lung; E89.0 Postprocedural hypothyroidism; G89.29 Other chronic pain; M25.561 Pain in right knee; R73.9 Hyperglycemia, unspecified; F32.A Depression, unspecified; R82.81 Pyuria; Z96.651 Presence of right artificial knee joint; Z79.890 Hormone replacement therapy; Z88.8 Allergy status to other drugs, medicaments and biological substances; I25.2 Old myocardial infarction
CPT/HCPCS: 36415; 71046; 80053; 81001; 83605; 83615; 83735; 83880; 84100; 84145; 84484; 85025; 87040; 87081; 87086; 87205; 87811; 89220; 93005; 94640; 96365; 96367; 96375; 99285; A9270; J0456; J0696; J1650; J2270; J2405; J2470; J3475; J3490; J7030; J7040; J7050; J1836

== ENCOUNTER 2025-01-09 12:23 | Inpatient (IN) | payer OTHER, SELFPAY ==
[2025-01-09 12:44] VITALS: BP 217/112; BP 220/130; PULSE 94; RESP 20; TEMP 36.8; O2SAT 97; BMI 33.3
--- NOTE | 2025-01-09 12:55 | EKG_ITS ---
[facility] Test Date: 2025-01-09 Pat Name: GEOVANNY PETERS Department: Room: - Gender: Female Air Brush Artist: : 1960 Requested By: Khoi Boyd Order Number: [id number] Reading MD: Khoi Boyd Measurements Intervals [place] Rate: 99 P: 66 MN: 169 QRS: 46 QRSD: 96 T: 61 QT: 376 QTc: 484 Interpretive Statements SINUS RHYTHM POSSIBLE LEFT ATRIAL ENLARGEMENT [-0.1mV P-WAVE IN V1/V2] POSSIBLE LEFT VENTRICULAR HYPERTROPHY [VOLTAGE CRITERIA PLUS LAE OR QRS WIDENING] Compared to ECG 01/05/2025 17:11:56 Sinus tachycardia no longer present ST (T wave) deviation no longer present /store/S0/[id number].pdf
--- NOTE | 2025-01-09 12:55 | XR_ITS ---
Examination: PA lateral chest 2 views Technique: Upright PA lateral chest 2 views Exam date and time: January 09, 2025 1302 hrs. Comparison January 05, 2025 Indications: Nausea vomiting beginning last week, most severe pneumonia on chest film January 05, 2015 Findings: Pneumonia has cleared Mild heart failure Mild to moderate enlargement left ventricle Prominent vascular congestion with mild septal edema in the lung brush Impression: Pneumonia has cleared Mild heart failure
--- NOTE | 2025-01-09 12:55 | XR_ITS ---
Examination: CT abdomen and pelvis without contrast. Coronal 3-D reconstructions. Sagittal 2-D reconstructions. Date and time of exam:January 09, 2025 at 1323 hrs. Comparison May 20, 2024 Indications: Severe abdominal pain with nausea vomiting today CTDI: vol (mGy): 18.6 DLP: (mGycm): 1151 Technique: Axial images of the abdomen have been obtained, 3 mm slice thickness Intravenous contrast material has not been administered. Low dose protocols were performed. One or more of the following dose reduction techniques were used; automated exposure control, adjustment of the mA and/or KV according to patient size, use of iterative reconstruction technique. Findings: Soft opacities in both lower lung zones consistent with pneumonia Mild enlargement cardiac contour No focal liver lesions No gallstones Spleen not enlarged Gastric sutures No pancreatic mass Moderate bilateral renal parenchymal scar formation Perinephric stranding No renal or ureteral calculi, no hydronephrosis Aorta normal size Normal appendix No bowel obstruction Scattered colonic diverticulosis, no diverticulitis Contracted urinary bladder No pelvic mass, absent uterus Advanced degenerative disc disease T11-T12 Impression: Mild pneumonia at the lung bases Negative for pancreatitis Moderate bilateral renal parenchymal scar formation with perinephric stranding, consider urinary tract infection No renal or ureteral calculi Normal appendix No bowel obstruction Scattered colonic diverticulosis, no diverticulitis
--- NOTE | 2025-01-09 12:56 | EDRME_ITS ---
Rapid Medical Screening Exam [facility] Arrival date/time: 01/09/25 12:23 64-year-old female with a history of hypothyroidism, hypertension presents to the emergency room with a chief complaint of abdominal pain, palpitations, nausea, dizziness x 1 week. Patient states she was seen here in the emergency room and was admitted with pneumonia. Patient states that since her discharge she is progressively gotten worse I have greeted and performed a focused initial assessment of this patient. A comprehensive ED assessment and evaluation of the patient, analysis of all test results, and completion of the medical decision making process will be conducted by additional ED providers. Chief Complaint: Nausea/Vomiting/Diarrhea Vital signs: Vital Signs Temperature 98.3 F 01/09/25 12:44 Pulse Rate 94 01/09/25 12:44 Respiratory Rate 20 01/09/25 12:44 Blood Pressure 217/112 H 01/09/25 12:44 Pulse Oximetry (%) 97 01/09/25 12:44 Vital signs reviewed by provider: Yes
[2025-01-09 13:07] VITALS: BP 217/112; PULSE 94
[2025-01-09] MEDS: HYDROcodone/APAP 5/325 TABLET 1 TAB PO (13:07)
[2025-01-09] MEDS: cloNIDine HCL 0.1 MG TABLET PO (13:07)
[2025-01-09 13:29] LABS: Basophils % (Auto) 0 % (0-2.5); Eosinophils % (Auto) 0 % (0-10); Hematocrit 41.7 % (36.0-46.0); Hemoglobin 13.8 g/dL (12.0-16.0); Immature Granulocytes % (Auto) 0 % (0-0); Immature Granulocytes Auto 0.03 Thou/mm3 (0.00-0.00); Lymphocytes # (Auto) 1.1 Thou/mm3 (1.0-4.8); Lymphocytes % (Auto) 12 % (10-50); Mean Corpuscular HGB Conc 33.1 g/dl (31.0-37.0); Mean Corpuscular Hemoglobin 29.6 pg (25.0-35.0); Mean Corpuscular Volume 90 fL (80-100); Monocytes # (Auto) 0.8 Thou/mm3 (0.0-0.8); Monocytes % (Auto) 8 % (0-12); Neutrophils # (Auto) 7.3 Thou/mm3 (1.8-7.7); Neutrophils % (Auto) 79 % (37-80); Nucleated Red Blood Cell % 0 /100 WBC (0); Platelet Count 283 Thou/mm3 (140-440); RDW Standard Deviation 43.7 fL (36.4-46.3); Red Blood Count 4.66 Miln/mm3 (4.00-5.20); White Blood Count 9.3 Thou/mm3 (3.6-11.0)
[2025-01-09 13:42] LABS: Collection Type, Urine Clean Catch
[2025-01-09 13:47] LABS: INR 1.1 (0.9-1.3); Partial Thromboplastin Time 28.8 Seconds (22.0-36.0); Prothrombin Time 11.7 Seconds (9.0-12.2)
[2025-01-09 13:52] LABS: Bilirubin,Urine Negative (Negative); Blood,Urine Negative (Negative); Clarity,Urine Clear (Clear/Hazy); Color,Urine Lt-Yellow (Lt Yel-Yel); Glucose, Urine Negative (Negative); Ketones,Urine 1+ (Negative); Leukocyte Esterase,Urine Negative (Negative); Nitrite,Urine Negative (Negative); Protein,Urine Negative (Neg - Trace); RBC,Urine 1 /hpf (0-3); Specific Gravity,Urine 1.012 (1.001-1.035); Squamous Epithelial Cell,Urine < 1 /hpf (0-5); WBC,Urine 2 /hpf (0-5)
[2025-01-09 13:59] LABS: Amphetamine/Methamp Scrn,U Negative (Negative); Barbiturate Screen,Urine Negative (Negative); Benzodiazepines Screen,Urine Negative (Negative); Benzoylecgonine Screen, Ur Negative (Negative); Fentanyl Screen,Urine Negative (Negative); Opiate Screen,Urine Negative (Negative); THC Screen,Urine Positive (Negative)
[2025-01-09 14:04] LABS: Alanine Aminotransferase 13 U/L (10-49); Albumin, Serum 4.2 gm/dL (3.4-4.8); Albumin/Globulin Ratio 1.8 (1.2-2.2); Alkaline Phosphatase 86 U/L (46-116); Anion Gap 13 (7-16); Aspartate Amino Transferase 18 U/L (0-34); BUN/Creatinine Ratio 16 Ratio (12-20); Bilirubin,Total 0.4 mg/dL (0.3-1.2); Blood Urea Nitrogen 23 mg/dL (9-23); Calcium 9.5 mg/dL (8.3-10.6); Calcium (Corrected) 9.5 mg/dL (8.5-10.1); Carbon Dioxide 19.7 mMol/L (20.0-31.0); Chloride 103 mMol/L (98-107); Creatinine (Component) 1.4 mg/dL (0.6-1.3); Estimated Creatinine Clearance 53.1 mL/min (>60); Globulin 2.4 gm/dL (2.3-3.5); Glucose 96 mg/dL (74-106); Lipase 37 U/L (12-53); Magnesium 1.7 mg/dL (1.6-2.6); Osmolality,Calculated 275 (275-295); Potassium 3.9 mMol/L (3.4-5.1); Sodium 136 mMol/L (136-145); Total Protein 6.6 gm/dL (5.7-8.2); eGFR 43 See Note
[2025-01-09 14:14] LABS: B-Type Natriuretic Peptide 571 pg/mL (0-100)
[2025-01-09 14:49] LABS: Troponin I 0.384 ng/mL (0.0-0.045)
[2025-01-09 16:33] VITALS: BP 136/77; PULSE 74; RESP 18; TEMP 36.7; O2SAT 95
--- NOTE | 2025-01-09 16:57 | PD.EDNV ---
Nausea/Vomit./Diarrhea-RME/HPI General Chief complaint: Nausea/Vomiting/Diarrhea Stated complaint: SICK DOG, COLD, HEART BEATING X Monday Arrival date/time: 01/09/25 12:23 RME / HPI RME / HPI Narrative: 01/09/25 12:23 64-year-old female with a history of hypothyroidism, hypertension presents to the emergency room with a chief complaint of abdominal pain, palpitations, nausea, dizziness x 1 week. Patient states she was seen here in the emergency room and was admitted with pneumonia. Patient states that since her discharge she is progressively gotten worse I have greeted and performed a focused initial assessment of this patient. A comprehensive ED assessment and evaluation of the patient, analysis of all test results, and completion of the medical decision making process will be conducted by additional ED providers. Related Data Home Medications ?Medication ?Instructions ?Recorded ?Confirmed fluoxetine 40 mg capsule 40 mg PO QDAY 09/29/23 01/05/25 hydrocodone 10 mg-acetaminophen 1 tab PO Q8H PRN Pain 09/29/23 01/05/25 325 mg tablet levothyroxine 137 mcg tablet 137 mcg PO QDAY 09/29/23 01/05/25 ondansetron 8 mg disintegrating 8 mg PO Q8H PRN Nausea And Vomiting 09/29/23 01/05/25 tablet ropinirole 3 mg tablet 3 mg PO QDAY 09/29/23 01/05/25 lisinopril 5 mg tablet 5 mg PO QDAY 01/05/25 01/05/25 Previous Rx's ?Medication ?Instructions ?Recorded amlodipine 5 mg tablet 5 mg PO QDAY #30 tabs 05/22/24 aspirin 81 mg capsule 81 mg PO QDAY #30 caps 05/22/24 benzocaine 15 mg lozenges 1 mg PO Q12H PRN cough 10 days #18 01/06/25 ea levofloxacin 750 mg tablet 750 mg PO QDAY 4 days #4 tabs 01/06/25 scopolamine base 1 mg over 3 days 1 mg topical Q72H 1 month #10 ea 01/06/25 transdermal patch Allergies Allergy/AdvReac Type Severity Reaction Status Date / Time naproxen (From Naprosyn) Allergy Verified 09/29/23 13:31 ED Exam Narrative Physical exam: Physical Exam: General: The vital signs were reviewed. Note her blood pressure was quite high long before I saw her and his come down to the 150 range when I put her in the triage room for reevaluation the patient is non-toxic, in no apparent distress and appears healthy with a patent airway, no respiratory distress and has no apparent circulatory problems. Head & Scalp: Normocephalic, atraumatic. Face: Appears normal and is without lesions, deformity. Ears: Left external pinna appears normal. Right external pinna appears normal. Eyes: The sclera is anicteric. No obvious photophobia. The Left and Right Orbit/Lid/Conjunctiva appears normal without swelling, discoloration or injection. Nose: The nose is without deformity, discharge or tenderness; Throat: Appears normal. The mucous membranes are pink and moist without exudates, redness or mass seen. The tongue appears normal. Neck: The neck is supple and no apparent mass or adenopathy. Chest: The chest wall is normal in size and symmetry and has no chest wall tenderness or crepitus. The patient displays normal ventilator effort without retractions, accessory muscle use and has adequate air movement bilaterally with no wheezes and no rales. Cardiovascular: Regular rate and rhythm; No murmurs, rubs, or gallops; Gastrointestinal: The abdomen appears normal. No obvious hernias or mass. The abdomen is soft and benign, non-distended, with no pain, no guarding and no rebound tenderness. Bowel sounds are present and normal sounding. No CVA tenderness. Genitourinary: Back/Spine: Extremities/Musculoskeletal/lymphatic: The bilateral upper and lower extremities are warm. There is no evidence of arterial insufficiency. There is no evidence of venous insufficiency/edema. The patient spontaneously moves bilateral upper and lower extremities with no pain and no limitation of movement. There is no apparent, injury or trauma. Skin: The skin is warm, dry and intact. No rashes. No petechia. No purpura. No abnormal bruising. The color is appropriate with no cyanosis. Mental status/Psychiatric: Mental status is appropriate for age. The patient has no apparent delusions, visual hallucinations, no apparent audible hallucinations. The patient has no apparent suicidal thoughts/ideation and no apparent homicidal thoughts/ideation. Neurological: The patient is awake, alert, interactive, cordial, cooperative and is oriented to name and situation. The patient follows commands and answers historical question with no impairment. There is no visual disturbance apparent. The pupils are equal and reactive bilaterally with normal eye movements and no diplopia The bilateral upper and lower extremities have normal strength, normal range of motion and normal functioning. The gait, station and balance appear to be baseline with no acute change Course Orders Category Date Time Status EKG (ED ONLY) *Do not use* NOW Care 01/09/25 12:[address] abdomen pelvis wo con Stat Exams 01/09/25 12:55 Completed EKG (ED Only) Stat Exams 01/09/25 12:55 Draft XR chest 2V Stat Exams 01/09/25 12:55 Completed B-Type Natriuretic Peptide Stat Lab 01/09/25 13:10 Completed CBC Stat Lab 01/09/25 13:10 Completed Comprehensive Metabolic Panel Stat Lab 01/09/25 13:10 Completed Drug Screen,Urine Stat Lab 01/09/25 13:19 Completed Lipase Stat Lab 01/09/25 13:10 Completed Magnesium Stat Lab 01/09/25 13:10 Completed Partial Thromboplastin Time Stat Lab 01/09/25 13:10 Completed Prothrombin Time with INR Stat Lab 01/09/25 13:10 Completed Troponin I Stat Lab 01/09/25 13:10 Completed Urinalysis Stat Lab 01/09/25 13:19 Completed HYDROcodone*/APAP 5/325 [Muse 5/325] Med 01/09/25 12:55 Discontinued 1 tab PO X1 ONE cloNIDine HCL [Catapres] Med 01/09/25 12:57 Discontinued 0.1 mg PO X1 ONE Vital Signs Vital signs: Vital Signs Temperature 98.3 F 01/09/25 12:44 Pulse Rate 94 01/09/25 12:44 Respiratory Rate 20 01/09/25 12:44 Blood Pressure 217/112 H 01/09/25 12:44 Pulse Oximetry (%) 97 01/09/25 12:44 Nausea/Vomiting/Diarrhea MDM Narrative MDM Narrative:: Patient had an episode of nausea and comes in to be evaluated for this. She was just in the hospital for possible pneumonia. She has had elevated troponins and BNP's in the past and again today they are elevated. She seen the static balancer in the past had an angiogram that was negative she had an echocardiogram a year and a half ago that was normal and he had another 1 in the hospital but that report is not visible in the medical record at this time Medical workup shows CBC to be unremarkable. PT/INR within normal limits CMP shows a sodium 136/3.8 chloride 103 carbadox is 19.7 BUN 23 creatinine 1.4 with a slight bump. Transaminases are within normal limits. Troponin is elevated 0.384 but the trend is going more negative over the past week and seems the BNP was more elevated now trending downward. Her urine drug screen is positive for marijuana. Incidentally the patient talks about chronic right knee pain she is followed by the [facility] and states they gave her a limited amount of hydrocodone which she is run out and asking for a another dose. Notes she had an additional dose earlier in the ER course. I spoke with the resident Dr. Cyr who is quite familiar with the patient and discussed the GLP-1 being the cause but evidently she has stopped that as I went back in the room and clarify that with the patient. And at 1715 hrs. they were going to come down and reevaluate this patient. Patient states she is walking feeling good not short of breath and not feeling dehydrated. I informed her that would not give her any more hydrocodone and that she would need to take [facility]. Uncertain why her CO2 is slightly low and a creatinine slightly high and again this could be some dehydration but she has not really been vomiting. Medications / Prescriptions Medication administrations:: Medication Administration History Discontinued Medications Hydrocodone Bitart/Acetaminophen (Hydrocodone/Apap 5/325 Tablet) 1 tab PO X1 ONE Stop: 01/09/25 12:56 Last Admin: 01/09/25 13:07 Dose: 1 tab Documented By: OA Clonidine (Clonidine Hcl 0.1 Mg Tablet) 0.1 mg PO X1 ONE Stop: 01/09/25 12:58 Last Admin: 01/09/25 13:07 Dose: 0.1 mg Documented By: OA Discharge Plan Prescriptions/Referrals Prescriptions/Med Rec: No Action levothyroxine 137 mcg Tablet 137 mcg PO QDAY ondansetron 8 mg Tablet,Disintegrating 8 mg PO Q8H PRN (Reason: Nausea And Vomiting) fluoxetine 40 mg Capsule 40 mg PO QDAY ropinirole 3 mg Tablet 3 mg PO QDAY hydrocodone-acetaminophen 10-325 mg Tablet 1 tab PO Q8H PRN (Reason: Pain) aspirin 81 mg capsule 81 mg PO QDAY Qty: 30 0RF amlodipine 5 mg tablet 5 mg PO QDAY Qty: 30 0RF lisinopril 5 mg tablet 5 mg PO QDAY scopolamine base 1 mg over 3 days patch 3 day 1 mg topical Q72H 30 Days Qty: 10 0RF benzocaine 15 mg lozenge 1 mg PO Q12H PRN (Reason: cough) 10 Days Qty: 18 0RF levofloxacin 750 mg tablet 750 mg PO QDAY 4 Days Qty: 4 0RF Referrals: Chanell Thomas [Primary Care Provider] - In 1 week Problem List Clinical Impression: Nausea, Elevated troponin, Elevated brain natriuretic peptide (BNP) level, Chronic pain of right knee Patient/Caregiver Discharge Instructions Print Language: Danish
--- NOTE | 2025-01-09 17:14 | PD.EDNV ---
Nausea/Vomit./Diarrhea-RME/HPI General Chief complaint: Nausea/Vomiting/Diarrhea Stated complaint: SICK DOG, COLD, HEART BEATING X Monday Time Seen by Provider: 01/09/25 17:34 Arrival date/time: 01/09/25 12:23 RME / HPI RME / HPI Narrative: 01/09/25 12:23 64-year-old female with a history of hypothyroidism, hypertension presents to the emergency room with a chief complaint of abdominal pain, palpitations, nausea, dizziness x 1 week. Patient states she was seen here in the emergency room and was admitted with pneumonia. Patient states that since her discharge she is progressively gotten worse I have greeted and performed a focused initial assessment of this patient. A comprehensive ED assessment and evaluation of the patient, analysis of all test results, and completion of the medical decision making process will be conducted by additional ED providers. DR. SEPULVEDA MAIN ED EVALUATION: 64 year old female with history of hypertension, hypothyroidism, s/p gastric bypass, s/p right knee replacement, chronic pain presents to the ED for evaluation of nausea. Reports nausea began Monday night and remaining constant since. Accompanied by diarrhea. No known modifying factors at home. Denies fevers, chills, sweats, chest pain or pressure, abdominal pain, vomiting, or urinary symptoms. Related Data Home Medications ?Medication ?Instructions ?Recorded ?Confirmed fluoxetine 40 mg capsule 40 mg PO QDAY 09/29/23 01/05/25 hydrocodone 10 mg-acetaminophen 1 tab PO Q8H PRN Pain 09/29/23 01/05/25 325 mg tablet levothyroxine 137 mcg tablet 137 mcg PO QDAY 09/29/23 01/05/25 ondansetron 8 mg disintegrating 8 mg PO Q8H PRN Nausea And Vomiting 09/29/23 01/05/25 tablet ropinirole 3 mg tablet 3 mg PO QDAY 09/29/23 01/05/25 lisinopril 5 mg tablet 5 mg PO QDAY 01/05/25 01/05/25 Previous Rx's ?Medication ?Instructions ?Recorded amlodipine 5 mg tablet 5 mg PO QDAY #30 tabs 05/22/24 aspirin 81 mg capsule 81 mg PO QDAY #30 caps 05/22/24 benzocaine 15 mg lozenges 1 mg PO Q12H PRN cough 10 days #18 01/06/25 ea levofloxacin 750 mg tablet 750 mg PO QDAY 4 days #4 tabs 01/06/25 scopolamine base 1 mg over 3 days 1 mg topical Q72H 1 month #10 ea 01/06/25 transdermal patch Allergies Allergy/AdvReac Type Severity Reaction Status Date / Time naproxen (From Naprosyn) Allergy Verified 09/29/23 13:31 Review of Systems Review of Systems Narrative Review of Systems: Constitutional: DENIES; Fevers Eyes: DENIES; Loss of vision Head/Ear/Nose: DENIES; Loss of hearing Throat: DENIES; Dysphagia Cardiovascular: DENIES; Chest pain, dyspnea or syncope Respiratory: DENIES; Shortness of breath Gastrointestinal: SEE HP +nausea, diarrhea. DENIES; Rectal bleeding or melena. Genitourinary: DENIES; Dysuria (painful or difficult urination) Musculoskeletal: DENIES; Arthralgia (pain in a joint),; Skin: DENIES; Rash Neurological: DENIES; Loss of function or movement Psychiatric: DENIES; recent major life stressor, emotional problem, illicit drug use or abuse Endocrinology: DENIES; Weight change Hematologic/Lymphatic: DENIES; Abnormal bruising Allergic/Immunologic: DENIES; Urticaria (hives) Past Medical History Past Medical History CARDIAC: Positive Cardiac Disorders and Hypertension GASTROINTESTINAL: Positive Obesity ENDOCRINE: Positive Endocrine Disorders and Hypothyroidism PSYCHO/SOCIAL: Positive Depression Family History FAMILY HISTORY: Positive Family Respiratory Disorders (Morther had Asthma) and Family Cardiac Disorders (Mother had heart failure) Surgical History SURGICAL: Positive Thyroidectomy, Tonsillectomy and Gastric Bypass Surgery Social History SMOKING STATUS: Never smoker SUBSTANCE USE: does not use ED Exam Narrative Physical exam: Physical Exam: General: The vital signs were reviewed. Note her blood pressure was quite high long before I saw her and his come down to the 150 range when I put her in the triage room for reevaluation the patient is non-toxic, in no apparent distress and appears healthy with a patent airway, no respiratory distress and has no apparent circulatory problems. Head & Scalp: Normocephalic, atraumatic. Face: Appears normal and is without lesions, deformity. Ears: Left external pinna appears normal. Right external pinna appears normal. Eyes: The sclera is anicteric. No obvious photophobia. The Left and Right Orbit/Lid/Conjunctiva appears normal without swelling, discoloration or injection. Nose: The nose is without deformity, discharge or tenderness; Throat: Appears normal. The mucous membranes are pink and moist without exudates, redness or mass seen. The tongue appears normal. Neck: The neck is supple and no apparent mass or adenopathy. Chest: The chest wall is normal in size and symmetry and has no chest wall tenderness or crepitus. The patient displays normal ventilator effort without retractions, accessory muscle use and has adequate air movement bilaterally with no wheezes and no rales. Cardiovascular: Regular rate and rhythm; No murmurs, rubs, or gallops; Gastrointestinal: The abdomen appears normal. No obvious hernias or mass. The abdomen is soft and benign, non-distended, with no pain, no guarding and no rebound tenderness. Bowel sounds are present and normal sounding. No CVA tenderness. Genitourinary: Back/Spine: Extremities/Musculoskeletal/lymphatic: The bilateral upper and lower extremities are warm. There is no evidence of arterial insufficiency. There is no evidence of venous insufficiency/edema. The patient spontaneously moves bilateral upper and lower extremities with no pain and no limitation of movement. There is no apparent, injury or trauma. Skin: The skin is warm, dry and intact. No rashes. No petechia. No purpura. No abnormal bruising. The color is appropriate with no cyanosis. Mental status/Psychiatric: Mental status is appropriate for age. The patient has no apparent delusions, visual hallucinations, no apparent audible hallucinations. The patient has no apparent suicidal thoughts/ideation and no apparent homicidal thoughts/ideation. Neurological: The patient is awake, alert, interactive, cordial, cooperative and is oriented to name and situation. The patient follows commands and answers historical question with no impairment. There is no visual disturbance apparent. The pupils are equal and reactive bilaterally with normal eye movements and no diplopia The bilateral upper and lower extremities have normal strength, normal range of motion and normal functioning. The gait, station and balance appear to be baseline with no acute change Course Quality Measures none Orders Category Date Time Status EKG (ED ONLY) *Do not use* NOW Care 01/09/25 12:[address] abdomen pelvis wo con Stat Exams 01/09/25 12:55 Completed EKG (ED Only) Stat Exams 01/09/25 12:55 Draft XR chest 2V Stat Exams 01/09/25 12:55 Completed B-Type Natriuretic Peptide Stat Lab 01/09/25 13:10 Completed CBC Stat Lab 01/09/25 13:10 Completed Comprehensive Metabolic Panel Stat Lab 01/09/25 13:10 Completed Drug Screen,Urine Stat Lab 01/09/25 13:19 Completed Lipase Stat Lab 01/09/25 13:10 Completed Magnesium Stat Lab 01/09/25 13:10 Completed Partial Thromboplastin Time Stat Lab 01/09/25 13:10 Completed Prothrombin Time with INR Stat Lab 01/09/25 13:10 Completed Troponin I Stat Lab 01/09/25 13:10 Completed Urinalysis Stat Lab 01/09/25 13:19 Completed HYDROcodone*/APAP 5/325 [Wells 5/325] Med 01/09/25 12:55 Discontinued 1 tab PO X1 ONE cloNIDine HCL [Catapres] Med 01/09/25 12:57 Discontinued 0.1 mg PO X1 ONE Vital Signs Vital signs: Vital Signs Temperature 98.3 F 01/09/25 12:44 Pulse Rate 94 01/09/25 12:44 Respiratory Rate 20 01/09/25 12:44 Blood Pressure 217/112 H 01/09/25 12:44 Pulse Oximetry (%) 97 01/09/25 12:44 Pulse ox is 97% on room air which is adequate. Nausea/Vomiting/Diarrhea MDM Narrative MDM Narrative:: ITeresa, am scribing for and in the presence of Dr. Sepulveda. Patient had an episode of nausea and comes in to be evaluated for this. She was just in the hospital for possible pneumonia. She has had elevated troponins and BNP's in the past and again today they are elevated. She seen the inspector [employer] in the past had an angiogram that was negative she had an echocardiogram a year and a half ago that was normal and he had another 1 in the hospital but that report is not visible in the medical record at this time Medical workup shows CBC to be unremarkable. PT/INR within normal limits CMP shows a sodium 136/3.8 chloride 103 carbadox is 19.7 BUN 23 creatinine 1.4 with a slight bump. Transaminases are within normal limits. Troponin is elevated 0.384 but the trend is going more negative over the past week and seems the BNP was more elevated now trending downward. Her urine drug screen is positive for marijuana. Incidentally the patient talks about chronic right knee pain she is followed by the [facility] and states they gave her a limited amount of hydrocodone which she is run out and asking for a another dose. Notes she had an additional dose earlier in the ER course. I spoke with the resident Dr. Cyr who is quite familiar with the patient and discussed the GLP-1 being the cause but evidently she has stopped that as I went back in the room and clarify that with the patient. And at 1715 hrs. they were going to come down and reevaluate this patient. Patient states she is walking feeling good not short of breath and not feeling dehydrated. I informed her that would not give her any more hydrocodone and that she would need to take this [facility]. Uncertain why her CO2 is slightly low and a creatinine slightly high and again this could be some dehydration but she has not really been vomiting. Resident physicians came down saw the patient and they said they can admit the patient to somewhat cardiac workup. Patient be admitted for further evaluation as discussed above Patient data External records reviewed:: [facility] previous records (I reviewed admission from 01/05/2025 through 01/06/2025) Clinical information provided by:: patient Social determinants that could affect healthcare access:: none Patient has the following chronic illnesses:: hypertension, hypothyroidism, s/p gastric bypass, s/p right knee replacement, chronic pain How is presenting disease/condition affected by chronic disease/condition?: exacerbated by Evaluation data The following diagnostics were reviewed and interpreted by me:: lab results, radiology exam(s) and EKG tracing(s) (Sinus rhythm, rate 99, no STEMI ) Lab and/or radiology exams considered but not ordered:: none Interpretation Summary: Ordering Physician: Khoi Shipley Date of Service: 01/09/25 Procedure(s): CT abdomen pelvis wo [facility] Accession Number(s): [id number] cc: Chanell Thomas; Khoi Shipley; Morteza Marie MD~ Examination: CT abdomen and pelvis without contrast. Coronal 3-D reconstructions. Sagittal 2-D reconstructions. Date and time of exam:January 09, 2025 at 1323 hrs. Comparison May 20, 2024 Indications: Severe abdominal pain with nausea vomiting today CTDI: vol (mGy): 18.6 DLP: (mGycm): 1151 Technique: Axial images of the abdomen have been obtained, 3 mm slice thickness Intravenous contrast material has not been administered. Low dose protocols were performed. One or more of the following dose reduction techniques were used; automated exposure control, adjustment of the mA and/or KV according to patient size, use of iterative reconstruction technique. Findings: Soft opacities in both lower lung zones consistent with pneumonia Mild enlargement cardiac contour No focal liver lesions No gallstones Spleen not enlarged Gastric sutures No pancreatic mass Moderate bilateral renal parenchymal scar formation Perinephric stranding No renal or ureteral calculi, no hydronephrosis Aorta normal size Normal appendix No bowel obstruction Scattered colonic diverticulosis, no diverticulitis Contracted urinary bladder No pelvic mass, absent uterus Advanced degenerative disc disease T11-T12 Impression: Mild pneumonia at the lung bases Negative for pancreatitis Moderate bilateral renal parenchymal scar formation with perinephric stranding, consider urinary tract infection No renal or ureteral calculi Normal appendix No bowel obstruction Scattered colonic diverticulosis, no diverticulitis Dictated By: Morteza Marie MD Signed By: <Electronically signed by Morteza Marie MD in [place]> 01/09/25 1416 Ordering Physician: Khoi Shipley Date of Service: 01/09/25 Procedure(s): XR chest 2V Accession Number(s): [id number] cc: Chanell Thomas; Khoi Shipley; Morteza Marie MD~ Examination: PA lateral chest 2 views Technique: Upright PA lateral chest 2 views Exam date and time: January 09, 2025 1302 hrs. Comparison January 05, 2025 Indications: Nausea vomiting beginning last week, most severe pneumonia on chest film January 05, 2015 Findings: Pneumonia has cleared Mild heart failure Mild to moderate enlargement left ventricle Prominent vascular congestion with mild septal edema in the lung brush Impression: Pneumonia has cleared Mild heart failure Dictated By: Morteza Marie MD Signed By: <Electronically signed by Morteza Marie MD in [place]> 01/09/25 1405 Medications / Prescriptions Medications / Prescriptions considered but not ordered:: None Medication administrations:: Medication Administration History Acetaminophen (Acetaminophen 325 Mg Tablet) 1,000 mg PO Q6H PRN PRN Reason: Fever >100 Stop: 02/08/25 18:05 Hydrocodone Bitart/Acetaminophen (Hydrocodone/Apap 5/325 Tablet) 1 tab PO Q6HR PRN PRN Reason: pain 4-10 Stop: 01/14/25 18:34 Amlodipine Besylate (Amlodipine Besylate 5 Mg Tablet) 5 mg PO HS JOYCELYN Stop: 02/08/25 20:59 Famotidine (Famotidine Inj 10 Mg/Ml Vial 2 Ml) 20 mg IVP Q12HR JOYCELYN Stop: 02/08/25 20:59 Magnesium Sulfate (Magnesium Sulfate Ivpb) 4 gm in 50 mls @ 12.5 mls/hr IV X1 ONE Stop: 01/09/25 22:44 Levothyroxine Sodium 112 mcg/ (Levothyroxine Sodium 25 mcg) 137 mcg PO ACBR JOYCELYN Stop: 02/09/25 05:59 Lisinopril (Lisinopril 2.5 Mg Tablet) 5 mg PO DAILY JOYCELYN Stop: 02/09/25 08:59 Ropinirole HCl (Ropinirole Hcl 1 Mg Tablet) 3 mg PO HS JOYCELYN Stop: 02/08/25 20:59 Discontinued Medications Hydrocodone Bitart/Acetaminophen (Hydrocodone/Apap 5/325 Tablet) 1 tab PO X1 ONE Stop: 01/09/25 12:56 Last Admin: 01/09/25 13:07 Dose: 1 tab Documented By: OA Clonidine (Clonidine Hcl 0.1 Mg Tablet) 0.1 mg PO X1 ONE Stop: 01/09/25 12:58 Last Admin: 01/09/25 13:07 Dose: 0.1 mg Documented By: OA Hydromorphone HCl (Hydromorphone Inj 2 Mg/Ml Vial) 1 mg IVP X1 ONE Stop: 01/09/25 18:36 Last Admin: 01/09/25 18:47 Dose: 1 mg Documented By: RD Ondansetron HCl (Ondansetron Inj 2 Mg/Ml Inj 2 Ml) 4 mg IV X1 ONE; Protocol Stop: 01/09/25 18:36 Potassium Chloride (Potassium Chloride 20 Meq Tabcr) 20 meq PO X1 ONE Stop: 01/09/25 18:46 Scopolamine (Scopolamine 1 Mg Tdsy) 1 mg TOP X1 ONE Stop: 01/09/25 18:13 Last Admin: 01/09/25 18:48 Dose: 1 mg Documented By: RD See above Consultations Consultation(s) initiated? (list below): Yes Consultation #1 (Physician, Specialty, Details): I spoke with resident Dr. García. Discussed patients PMHx, HPI, ED course, exam findings, labs, and radiology results. State they will come evaluate the patient in the ED. Diagnosis Nausea Differential Diagnosis: gastroenteritis, clostridium difficile infection, drug-induced nausea and vomiting and dehydration Most likely diagnosis given after review of the tests above:: Nausea Elevated troponin Elevated BNP level Chronic pain of right knee Admission Indicated Admission indicated?: indicated Admission Request Was there a request for admission?: Yes Admission Attestation Admission request attestation: Discussed case with [] from Hospitalist service regarding admission. Discussed patients ED course, exam findings, labs, and radiology results. The Hospitalist [agrees,declines] to accept the patient for admission. Disposition Plan Disposition Plan: Admit Discharge Plan Plan Patient Disposition: Admit Acute Care w/in Hospital Disposition Comment: Hospitalist Problem List Clinical Impression: Nausea, Elevated troponin, Elevated brain natriuretic peptide (BNP) level, Chronic pain of right knee
--- NOTE | 2025-01-09 18:05 | PD.RESHP ---
Documentation for date of: 01/09/25 HPI History of Present Illness History of present illness: Chief complaint: Intractable vomiting HPI: Patient is a 64-year-old female with past medical history of primary hypertension, chronic left knee pain s/p total knee replacement, obesity on GLP-1 and anxiety/depression, who was recently discharged after a 2-day hospital stay for similar complaints. Patient was sent home on scopolamine patches under strict instructions to increase the duration between her GLP-1 therapy. However 24 hours ago patient started to experience severe nausea and intractable vomiting with multiple episodes of clear/yellow large-volume vomitus. She denies any blood or mucus in the vomit. Patient endorses that her symptoms started spontaneously this time, and not in reaction to her GLP-1 which she has not taken. She does endorse using THC is as her primary care doctor only gives her a short prescription every month for her chronic knee pain. Patient has been using marijuana for less than 3 months. In the ED, vitals were within normal limits. Initial body workup showed CBC within normal limits, CMP remarkable for mild renal injury creatinine 1.4 and GFR 43, at baseline patient does not have any renal issues. Troponin elevated at 0.384, patient does have chronic troponinemia, last known troponin 0.700. BNP continues to be elevated on this admission 571, previous admission 696. Patient did have an echocardiogram taken on her recent hospitalization, however was discharged prior to the results. Urinalysis remarkable for positive THC on toxicology. On imaging, chest x-ray shows pprominent vascular congestion consisted with heart failure- moderate enlargement left ventricle, mild septal edema in the lung brush. EKG shows elevated Qtc 484, likely due to regular anti-emetic use. CT abdo/pelvis shows Mild pneumonia at the lung bases, bilateral renal parenchymal scar formation with perinephric stranding, and diffuse colonic diverticulosis, no diverticulitis. Patient was admitted for the work-up and management of intractable vomiting likely secondary to concomitant GLP1 and THC use. Will follow up with Cardiology to read the ECHO from last visit. 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 Tobacco?Use:?Denies ETOH?Use:?Socially Drug?Note:?Marijuana Social?History?Note:?Lives?with? Family history: Negative for sudden cardiac or stroke. Review of Systems Review of Systems Narrative Review of Systems: GENERAL: Denies fevers/chills, diaphoresis. HEENT: Denies headache or visual/hearing changes. Denies nasal discharge. NEURO: Denies unusual weakness or difficulty speaking. CARDIO: Denies chest pain, palpitations. PULM: Denies SOB, cough, wheezing. GI: Denies abdominal pain, intractable N/V, denies C/D. Reports having BMs URO: Denies burning/itching/pain/urinary changes. 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 MSK/EXT/SKIN: RT knee pain PSYCH: Cooperative, pleasant mood & affect. The rest of the review of systems is otherwise negative. Exam Vital Signs Temp Pulse Resp BP Pulse Ox O2 Del Method 98.0 F 74 18 136/77 H 95 Room Air 01/09/25 16:33 01/09/25 16:33 01/09/25 16:33 01/09/25 16:33 01/09/25 16:33 01/09/25 16:33 Narrative Exam Constitutional Alert, oriented x3 and comfortable. Obese HEENT Vision grossly intact. Patent nares. Trachea midline. Respiratory Chest normal on inspection and clear to auscultation bilaterally. Cardiovascular S1 and S2 audible, RRR. No murmurs or carotid bruit. No gross JVD. Abdominal Soft and non tender to palpation in all quadrants. BS + Intractable N/V Genitourinary No bladder tenderness, no flank pain. Normal to palpation. Musculoskeletal Extremities tone within normal limits. No LE edema. Neurological CN II - XII grossly intact. Extremity motor and sensation grossly intact. Skin Warm, dry and intact. RT knee surgical scar Psychiatric Patient has a good affect, is cooperative. Results: Labs 01/09/25 13:10 01/09/25 13:10 Labs: Short CBC 01/09/25 Range/Units 13:10 WBC 9.3 (3.6-11.0) Thou/mm3 Hgb 13.8 D (12.0-16.0) g/dL Hct 41.7 (36.0-46.0) % Plt Count 283 D (140-440) Thou/mm3 BMP 01/09/25 13:10 Sodium 136 Potassium 3.9 Chloride 103 Carbon Dioxide 19.7 L BUN 23 Creatinine 1.4 H Glucose 96 Calcium 9.5 Cardiac Enzymes 01/09/25 Range/Units 13:10 Troponin I 0.384 H* (0.0-0.045) ng/mL Liver Function 01/09/25 Range/Units 13:10 Total Bilirubin 0.4 (0.3-1.2) mg/dL AST 18 (0-34) U/L ALT 13 (10-49) U/L Alkaline Phosphatase 86 (46-116) U/L Albumin 4.2 (3.4-4.8) gm/dL Urine 01/09/25 Range/Units 13:19 Urine Color Lt-Yellow (Lt Yel-Yel) Urine Clarity Clear (Clear/Hazy) Urine pH 7.0 (5.0-7.0) Ur Specific [place] 1.012 (1.001-1.035) Urine Protein Negative (Neg - Trace) Urine Glucose (UA) Negative (Negative) Quality Measures Quality Measures none Medications Home Medications and Allergies Home Medications ?Medication ?Instructions ?Recorded ?Confirmed ?Type fluoxetine 40 mg capsule 40 mg PO QDAY 09/29/23 01/05/25 History hydrocodone 10 mg-acetaminophen 1 tab PO Q8H PRN Pain 09/29/23 01/05/25 History 325 mg tablet levothyroxine 137 mcg tablet 137 mcg PO QDAY 09/29/23 01/05/25 History ondansetron 8 mg disintegrating 8 mg PO Q8H PRN Nausea And Vomiting 09/29/23 01/05/25 History tablet ropinirole 3 mg tablet 3 mg PO QDAY 09/29/23 01/05/25 History lisinopril 5 mg tablet 5 mg PO QDAY 01/05/25 01/05/25 History Allergies Allergy/AdvReac Type Severity Reaction Status Date / Time naproxen (From Naprosyn) Allergy Verified 09/29/23 13:31 Visit Medications Discontinued Medications Hydrocodone Bitart/Acetaminophen (Hydrocodone/Apap 5/325 Tablet) 1 tab PO X1 ONE Stop: 01/09/25 12:56 Last Admin: 01/09/25 13:07 Dose: 1 tab Clonidine (Clonidine Hcl 0.1 Mg Tablet) 0.1 mg PO X1 ONE Stop: 01/09/25 12:58 Last Admin: 01/09/25 13:07 Dose: 0.1 mg Assessment & Plan Plan Ms Finch is a 64-year-old female PMHx of hypothyroidism, HTN, and gastric bypass, presenting with intractable nausea or vomiting, likely secondary to GLP1 and THC use. Intractable vomiting refractory to oral antiemetics secondary to GLP 1 agonist weight loss therapy THC substance abuse S/p gastric bypass surgery - recurrent admission for intractable vomiting - Patient uses Reglan, nausea refractory to medications - Patient was advised on last admission to increase the duration between her GLP-1 doses - Mg 1.7 and K 3.9 Plan: - Famotidine 20 mg twice daily for GI prophylaxis - Scopolamine patch x 72 hours - Will hold off on Zofran or Reglan given QTc prolongation noted on EKG - Mg 4g + KCL 20mEq x1 ordered - Social service referral. Patient will benefit from outpatient pain management. - Daily AM Renal panel + Mag , will replete as needed Pulmonary edema Elevated BNP Troponinemia, chronic Prolonged QTc - History of chronic troponinemia, denies any chest pain or discomfort at this time. - BNP 696 (last admission) --> 571 - Troponin 0.700 (last admission) --> 0.384 - EKG : sinus rhythm without acute ST changes. QTc >480 -likely due to regular antiemetic use - ECHO 05/2024 : EF 60?65% normal LV/RV size and function. - Repeat echo ordered on last admission 1 week ago, pending results Plan: ? Trending troponin x1 at 9pm ? Repeat EKG in the a.m. on 01/10 ? Will follow up with Cardiology to read the ECHO from last visit. Hypothyroidism Partial thyroidectomy - Follows up regularly with PCP regarding thyroid function - TSH 33.9 in 05/2025 Plan: - Continue LEVOTHYROXINE 137 mcg - TSH and Free T4 ordered for AM draw Chronic right knee pain - S/p right knee replacement with chronic knee pain - Takes THC in addition, as PCP only gives a short supply of [place] Plan: - Continue home NORCO 5mg q6H for now - Will get Lidocaine patch if needed Health maintenance Disposition: Med Surg , will follow up ECHO. N/V treated with scopolamine for now Diet: Low sodium 2g GI prophylaxis: Famotidine 20mg q12H DVT prophylaxis: SCDs only, ambulation encouraged CODE STATUS: Full code Plan of care discussed with attending Dr Iris Armas M.D. PGY2 Disclaimer: This note was dictated by speech recognition. Minor errors in lawn specialist may be present due to voice recognition software. Attending Provider Attestation/Addendum I have discussed and was present for the essential components of the history, physical examination, diagnosis, and treatment plan with the resident. I agree with the patient's care as documented by the resident and amended herein by me. Wilfrido Simmons DO.: Although this document has been carefully reviewed, there may still be some phonetic and other typographical errors. These errors are purely grammatical due to imperfections in the software program and should not be construed in any way to compromise the substance of the patient's medical care during this visit.
--- NOTE | 2025-01-09 18:05 | PC.CC ---
Patient is a 64 year-old female who presents to the for [facility] as a dog, cold, heart beating. Vaishnavi HAWLEY made ogny-ey-dtab contact with patient. ASW introduced self, role, and reason for visit. Patient appeared alert and oriented to self, location, and situation. Patient was pleasant and engaged in initial assessment. Patient confirmed information on demographic and reports to living alone. At home patient ambulates independently and completes her own ADLs. Patient does not use any DME while at home. Patient received primary care with Chanell Thomas and uses [facility] for prescription medication. Upon discharge patient plans to return home. creative services director to follow up for any discharge needs.
[2025-01-09 18:28] VITALS: BP 133/69; PULSE 73; RESP 17; TEMP 36.6; O2SAT 98
[2025-01-09] MEDS: HYDROmorphone INJ 2 MG/ML VIAL 1 MG IVP ×2 (18:47→22:30)
[2025-01-09] MEDS: SCOPOLAMINE 1 MG TDSY TOP (18:48)
[2025-01-09 19:54] VITALS: BMI 33.3
[2025-01-09 19:58] VITALS: BP 146/80; PULSE 74
[2025-01-09] MEDS: amLODIPine BESYLATE 5 MG TABLET PO (19:58)
[2025-01-09] MEDS: POTASSIUM CHLORIDE 20 mEq TABCR PO (19:59)
[2025-01-09] MEDS: HYDROcodone/APAP 10/325 TAB PO (19:59)
[2025-01-09] MEDS: ONDANSETRON INJ 2 MG/ML INJ 2 ML 4 MG IV (20:00)
[2025-01-09] MEDS: FAMOTIDINE INJ 10 MG/ML VIAL 2 ML 20 MG IVP (20:00)
[2025-01-09 21:43] LABS: Troponin I 0.299 ng/mL (0.0-0.045)
[2025-01-09 21:52] VITALS: BP 111/82; PULSE 71; RESP 17; TEMP 36.6; O2SAT 97
[2025-01-09] MEDS: Magnesium Sulfate 4 GM Ivpb 4 GM/50 ML BAG IV (21:53)
[2025-01-09 21:59] VITALS: BMI 34.4
[2025-01-10] VITALS: BP 107/53; PULSE 80; RESP 18; TEMP 36.4; O2SAT 95
[2025-01-10 04:00] VITALS: BP 106/57; PULSE 72; RESP 17; TEMP 36.3; O2SAT 95
[2025-01-10] MEDS: LEVOTHYROXINE SODIUM 112 MCG, LEVOTHYROXINE SODIUM 25 MCG 137 MCG PO (05:07)
[2025-01-10] MEDS: HYDROcodone/APAP 10/325 TAB PO ×2 (05:12→13:23)
[2025-01-10 06:59] LABS: Basophils # (Auto) 0.1 Thou/mm3 (0.0-0.2); Basophils % (Auto) 1 % (0-2.5); Eosinophils # (Auto) 0.2 Thou/mm3 (0.0-0.5); Eosinophils % (Auto) 5 % (0-10); Hematocrit 33.2 % (36.0-46.0); Hemoglobin 10.9 g/dL (12.0-16.0); Immature Granulocytes % (Auto) 0 % (0-0); Immature Granulocytes Auto 0.01 Thou/mm3 (0.00-0.00); Lymphocytes # (Auto) 1.2 Thou/mm3 (1.0-4.8); Lymphocytes % (Auto) 26 % (10-50); Mean Corpuscular HGB Conc 32.8 g/dl (31.0-37.0); Mean Corpuscular Hemoglobin 29.4 pg (25.0-35.0); Mean Corpuscular Volume 90 fL (80-100); Monocytes # (Auto) 0.5 Thou/mm3 (0.0-0.8); Monocytes % (Auto) 12 % (0-12); Neutrophils # (Auto) 2.6 Thou/mm3 (1.8-7.7); Neutrophils % (Auto) 56 % (37-80); Nucleated Red Blood Cell % 0 /100 WBC (0); Platelet Count 215 Thou/mm3 (140-440); RDW Standard Deviation 44.5 fL (36.4-46.3); Red Blood Count 3.71 Miln/mm3 (4.00-5.20); White Blood Count 4.5 Thou/mm3 (3.6-11.0)
[2025-01-10 07:27] LABS: Albumin, Serum 3.2 gm/dL (3.4-4.8); Anion Gap 9 (7-16); BUN/Creatinine Ratio 16 Ratio (12-20); Blood Urea Nitrogen 18 mg/dL (9-23); Calcium 8.4 mg/dL (8.3-10.6); Carbon Dioxide 23.2 mMol/L (20.0-31.0); Chloride 104 mMol/L (98-107); Creatinine (Component) 1.1 mg/dL (0.6-1.3); Estimated Creatinine Clearance 68.7 mL/min (>60); Free T4 (Free Thyroxine) 1.49 ng/dL (0.89-1.76); Glucose 81 mg/dL (74-106); Magnesium 2.4 mg/dL (1.6-2.6); Osmolality,Calculated 272 (275-295); Phosphorous 3.9 mg/dL (2.4-5.1); Sodium 136 mMol/L (136-145); Thyroid Stimulating Hormone 7.94 uIU/mL (0.55-4.78); eGFR 57 See Note
[2025-01-10 08:00] VITALS: BP 114/58; PULSE 59; RESP 19; TEMP 36.6; O2SAT 94
[2025-01-10 08:55] VITALS: BP 114/58; PULSE 59
[2025-01-10] MEDS: Lisinopril 2.5 MG TABLET 5 MG PO (08:55)
[2025-01-10] MEDS: FAMOTIDINE INJ 10 MG/ML VIAL 2 ML 20 MG IVP (08:56)
[2025-01-10] MEDS: DULoxetine HCL 30 MG CAPSULE PO (08:56)
--- NOTE | 2025-01-10 09:51 | ESDS_ITS ---
Planned Discharge Date 01/10/25 DS: Providers Provider Date of admission: 01/09/25 18:05 Primary care physician: Chanell Thomas Admitting Provider: Quincy Armas MD Attending Provider on Admission: Adolph Simmons DO Attending Provider on DC: Adolph Simmons DO Discharging Provider: Quincy Armas MD DS: Diagnosis Discharge Diagnosis (1) Cyclical vomiting syndrome: Status: Acute (2) Weight loss due to medication: Status: Acute (3) Chronic pain of right knee: Status: Acute Problem List Completed Was Problem List Reviewed/Reconciled?: Yes Hospital Course Hospital Course Hospital course: Hospital Course: Ms Finch is a 64-year-old female PMHx of hypothyroidism, HTN, and gastric bypass, presenting with intractable nausea or vomiting, likely secondary to GLP1 and THC use. No acute events overnight. Patient tolerating diet, adequate urine output and mentation is at baseline. Patient endorses improvement with scopolamine patch in hospital, no noted episodes of vomiting. She appears to respond with scopolamine, which also has a low risk of QT prolongation She was counseled extensively on stopping THC use as it may be contributing to N/V. She can take celebrex for pain control. Patient shows agreement to increasing duration between GLP1 doses to 2 weeks. Was unable to vegetable picker her scopolamine patches on last DC due to insurance, but will collect them now. Advised to refrain from using zofran or reglan given prolonged QTc >480. In emergent situations, compazine may be safe to use as a one time. If N/V refractory to compazine and scopolamine, and famotidine, she must return to the ED. Problems on this admission: - Intractable vomiting , refractory to oral antiemetics secondary to - GLP 1 agonist weight loss therapy - THC substance abuse - S/p gastric bypass surgery - Pulmonary edema - Elevated BNP - Troponinemia, chronic - Prolonged QTc - Hypothyroidism - Partial thyroidectomy - Chronic right knee pain Procedures: None Discharge instructions: - Follow up with PCP within 1 week from discharge. If you dont have a PCP call: [phone] for an appointment - apply scopolamine patches for nausea/vomiting every 72 hours, as needed - Increases GLP 1 gap between doses to 2 weeks. May take Famotidine 20mg up to twice a day to prevent GI side effects. - You must stop all THC products as it may trigger vomiting. May take Celebrex 100mg up to twice a day for pain control. - Started Duloxetine 30mg twice a day for mood symptoms and pain control. Stop Flouxetine. - Continue Levothyroxine, dose increased to 150mcg daily. Repeat testing recomm ended in 6 weeks. - Continue other home medications as prescribed. - Return to ED if symptoms worsen We are grateful to be able to participate in Ms Finch' care. We wish her the best. - Quincy Armas MD Status at Discharge Cognitive/behavioral status at discharge: stable and returned to baseline Functional status at discharge: independent ambulation Overall status at discharge: patient is back to baseline Time Spent with Patient Time attestation: Total time spent providing and/or coordinating discharge services: more than 50% Time spent: Greater than 30 minutes Exam Vital Signs Temp Pulse Resp BP Pulse Ox O2 Del Method 97.9 F 59 L 19 114/58 L 94 L Room Air 01/10/25 08:00 01/10/25 08:55 01/10/25 08:00 01/10/25 08:55 01/10/25 08:00 01/10/25 04:00 Narrative Exam Constitutional AOx2 ; Obese but >40lb weight loss in 6-8 months on GLP1 HEENT Vision grossly intact. Patent nares. Trachea midline. Respiratory Chest normal on inspection and clear to auscultation bilaterally. Cardiovascular S1 and S2 audible, RRR. No murmurs or carotid bruit. No gross JVD. Abdominal Soft and non tender to palpation in all quadrants. BS + Intractable N/V - resolved Genitourinary No bladder tenderness, no flank pain. Normal to palpation. Musculoskeletal Extremities tone within normal limits. No LE edema. Neurological CN II - XII grossly intact. Extremity motor and sensation grossly intact. Skin Warm, dry and intact. RT knee surgical scar Psychiatric Patient has a good affect, is cooperative. Discharge Plan Plan Patient Disposition: HOME (Self Care) Disposition Comment: Hospitalist Patient condition on transfer: Stable Care Plan Goals: - Follow up with PCP within 1 week from discharge. If you dont have a PCP call: [phone] for an appointment - apply scopolamine patches for nausea/vomiting every 72 hours, as needed - Increases GLP 1 gap between doses to 2 weeks. May take Famotidine 20mg up to twice a day to prevent GI side effects. - You must stop all THC products as it may trigger vomiting. May take Celebrex 100mg up to twice a day for pain control. - Started Duloxetine 30mg twice a day for mood symptoms and pain control. Stop Flouxetine. - Continue Levothyroxine, dose increased to 150mcg daily. Repeat testing recommended in 6 weeks. - Continue other home medications as prescribed. - Return to ED if symptoms worsen Prescriptions/Referrals Prescriptions/Med Rec: New levothyroxine 150 mcg capsule 150 mcg PO QDAY 30 Days Qty: 30 0RF duloxetine 30 mg capsule,delayed release(DR/EC) 30 mg PO BID Qty: 60 0RF famotidine 20 mg tablet 20 mg PO BID 30 Days Qty: 60 0RF Continued hydrocodone-acetaminophen 10-325 mg Tablet 1 tab PO Q8H PRN (Reason: Pain) aspirin 81 mg capsule 81 mg PO QDAY Qty: 30 0RF lisinopril 5 mg tablet 5 mg PO QDAY scopolamine base 1 mg over 3 days patch 3 day 1 mg topical Q72H 30 Days Qty: 10 0RF benzocaine 15 mg lozenge 1 mg PO Q12H PRN (Reason: cough) 10 Days Qty: 18 0RF Changed ropinirole 3 mg Tablet 3 mg PO HS 30 Days Qty: 30 0RF amlodipine 5 mg tablet 5 mg PO HS Qty: 30 0RF Discontinued levothyroxine 137 mcg Tablet 137 mcg PO QDAY ondansetron 8 mg Tablet,Disintegrating 8 mg PO Q8H PRN (Reason: Nausea And Vomiting) fluoxetine 40 mg Capsule 40 mg PO QDAY levofloxacin 750 mg tablet 750 mg PO QDAY 4 Days Qty: 4 0RF Referrals: Chanell Thomas [Primary Care Provider] - Patient/Caregiver Discharge Instructions Discharge Activity: resume usual activities Education Materials: Cyclic Vomiting Syndrome Ch, Vomiting Ch Print Language: Dominican Stand Alone Forms: Danielle Award Info., Patient Portal Info Letter Discharge Order Discharge Orders: Discharge (Routine); Ordered 01/10/25 Ordered By: Quincy Armas Quality Discharge Quality Measures VTE prophylaxis Attestestation Attestation I have discussed and was present for the essential components of the discharge history, physical examination, diagnosis, and discharge treatment plan with the resident. I agree with the patient's discharge care as documented by the resident and amended herein by me. Wilfrido Simmons DO. The patient understood all discharge instructions, all questions were answered satisfactorily. The patient was instructed to return to the Emergency Department is symptoms worsened or persisted. Patient was stable, afebrile, tolerating p.o. intake and ambulatory at time of discharge home. Nausea has significantly improved. Scopolamine prescribed, the patient will vegetable picker at her pharmacy today which she has been unable to do previously. All questions answered satisfactorily. Although this document has been carefully reviewed, there may still be some phonetic and other typographical errors. These errors are purely grammatical due to imperfections in the software program and should not be construed in any way to compromise the substance of the patient's medical care during this visit.
[2025-01-10 12:00] VITALS: BP 126/61; PULSE 68; RESP 18; TEMP 36.2; O2SAT 96
[2025-01-10] MEDS: IRON SUCROSE CPLX INJ 20 MG/ML VIAL 5 ML 200 MG IVP (13:24)
== END 2025-01-10 15:02 | disposition home or self-care (01) | DRG 393 ==
LOC: SERX 17:22 → SERHOLD 18:18 → S3SX 21:47
PROVIDERS: Nurse Practitioner Family; Student in an Organized Health Care Education/Training Program; Admitting Provider Student in an Organized Health Care Education/Training Program; Emergency Provider Emergency Medicine; Visit Provider Student in an Organized Health Care Education/Training Program
DX: R11.15 Cyclical vomiting syndrome unrelated to migraine (principal); J18.9 Pneumonia, unspecified organism; E03.9 Hypothyroidism, unspecified; I10 Essential (primary) hypertension; F32.A Depression, unspecified; E66.9 Obesity, unspecified; F12.10 Cannabis abuse, uncomplicated; F41.9 Anxiety disorder, unspecified; M25.561 Pain in right knee; G89.29 Other chronic pain; Z98.84 Bariatric surgery status; Z96.651 Presence of right artificial knee joint; Z88.0 Allergy status to penicillin; Z79.890 Hormone replacement therapy
CPT/HCPCS: 36415; 71046; 74176; 80053; 80069; 80307; 81001; 83690; 83735; 83880; 84439; 84443; 84484; 85025; 85610; 85730; 87081; 87811; 93005; 96374; 96375; 99285; J1756; J2405; J3475; J3490; A9270